=== PATIENT | female | born 1970 | race Caucasian/White ===

== ENCOUNTER 2021-03-20 04:48 | Inpatient (IN) | payer BC, OTHER ==
[~2021-03-20] VITALS: Ht 170 cm; Wt 104.7 kg
--- OUTSIDE RECORDS SUMMARY | 2021-03-20 04:53 | XMS REPORT | Clinical Summary ---
Author Author [facility] Organization [facility] Address Unknown Phone Unavailable Care Team Providers Care Director Music Name Role Phone Dami Miller MD PCP Source Comments Some departments are not documenting in the electronic medical record. If you d o not see the information that you expected, contact [facility] Information [facility] Information Management department at [phone] for further assistan ce in locating additional records.[facility] Allergies Comments Active Allergy Reactions Severity Noted Date Lisinopril COUGH High 03/10/2019 Medications End Date Status Medication Sig Dispensed Refills Start Date Active losartan-hydrochlorothiaz Take 1 tablet 0 gosia (HYZAAR) 100-25 mg by mouth tablet every morning. Active meloxicam (MOBIC) 15 mg Take 15 mg by 0 tablet mouth daily. Active metoprolol XL (TOPROL XL) Take 25 mg by 0 25 mg extended release mouth daily. tablet Active albuterol sulfate (PROAIR Inhale two 25.5 g 0 HFA) 90 mcg/actuation puffs by 0 aerosol inhaler mouth into the lungs every 6 hours as needed for Wheezing or Shortness of Breath. Shake well before use. Active Problems No known active problems Medical History Medical History Date Comments Hypertension Depression Family History Medical History Relation Name Comments Cancer Father Colon Cancer Mother Non Hodgkins Lympho ma Relation Name Status Comments Father Mother Social History Date Tobacco Use Types Packs/Day Years Used Never Smoker Smokeless Tobacco: Chew Current User Sex Assigned at Date Recorded Not on file Last Filed Vital Signs Not on file Plan of Treatment Health Maintenance Due Date Last Done Comments HIV SCREENING 01/19/1987 DTAP/TDAP VACCINES (1 - 01/19/1990 Tdap) HEPATITIS C SCREENING 01/19/1990 PHYSICAL (COMPREHENSIVE) 01/19/1990 EXAM CERVICAL CANCER SCREENING 01/19/1993 BREAST CANCER SCREENING 2012 INFLUENZA VACCINE 10/28/2020 Results Not on filefrom Last 3 Months Insurance Type Payer Benefit Subscriber ID Effective Phone Address Plan / Dates Group PPO BC[facility] [id number] 2014-P [phone] [id number] [facility] [place] [address] [facility] [address] (Home) [place], [place] [address] Advance Directives Patient Informatics Educator Explanation Type Date Recorded Advance Directive/DPOA Care Teams Start Date End Date Director Music Relationship Specialty 11/20/14 Dami Miller MD PCP - General [place] [address] [place] [id number]
--- NOTE | 2021-03-20 05:11 | ED Respiratory ---
General Chief Complaint: COVID19 Suspect/Confirmed Stated Complaint: SOB Source: patient Exam Limitations: no limitations (YAEL GRANDE MD) History of Present Illness Date Seen by Provider: Mar 20, 2021 Time Seen by Provider: 05:00 Initial Comments Patient is a 51-year-old female who presents to the emergency department with a chief complaint of worsening shortness of breath. Patient states that a couple of days before Thanksgi (on or about the ) she started feeling poorly. Sometime around 05 March she was diagnosed with Covid. She was admitted to a hospital in [place] ([facility]) where she stayed for about 2 weeks. Patient states that she was on high flow oxygen and slowly weaned down to normal oxygen per nasal cannula, discharged 7 days ago () on 4.5 L. She states over the last couple of days she has been having increasing oxygen requirements at home, worsening cough now productive of sputum. She denies any fevers or chills. No earache, runny nose or sore throat. She denies abdominal pain nausea, vomiting or diarrhea. No urinary complaints. No rashes, joint pain or swelling. She is not currently on any medications other than her antihypertensives. She is not diabetic. She does not smoke. 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 She is not Covid Vaccinated. EMS had her on a NRB. Room air sats at arrival were 73%. Patient was placed on 12 to 15 L per facemask and is satting 88 to 89%. All other review of systems reviewed and negative except as stated. Timing/Duration: getting worse Severity: severe Prior Episodes/Possible Cause: illness exposure Modifying Factors: Worse With Activity, Worse With Coughing Associated Symptoms: cough, shortness of breath (YAEL GRANDE MD) Allergies and Home Medications Allergies Uncoded Allergies: "pain meds" (Adverse Reaction, Unknown, 03/20/21) Patient Home Medication List Home Medication List Reviewed: Yes (YAEL GRANDE MD) ALPRAZolam (ALPRAZolam) 0.25 Mg Tablet, 0.25 MG PO TID PRN for ANXIETY, (Reported) Entered as Reported by: ZACH MOONEY on 03/20/21 1902 Last Action: Held Benzonatate (Benzonatate) 100 Mg Capsule, 100 MG PO TID PRN for COUGH, (Reported) Entered as Reported by: ZACH MOONEY on 03/20/211223 Last Action: Continued Citalopram Hydrobromide (Citalopram HBr) 20 Mg Tablet, 20 MG PO HS, (Reported) Entered as Reported by: ZACH MOONEY on 03/20/211223 Last Action: Continued Diphenhydramine HCl (Benadryl Allergy) 25 Mg Tablet, 25 MG PO HS PRN for SLEEP, (Reported) Entered as Reported by: ZACH MOONEY on 03/20/211223 Last Action: Held Ibuprofen (Advil Liqui-Gels) 200 Mg Capsule, 400-600 MG PO Q8H PRN for PAIN-MILD (1-4), (Reported) Entered as Reported by: ZACH MOONEY on 03/20/211223 Last Action: Held Losartan/Hydrochlorothiazide (Losartan-Hctz 100-25 mg Tab) 1 Each Tablet, 1 EA PO DAILY, (Reported) Entered as Reported by: ZACH MOONEY on 03/20/211223 Last Action: Converted Nabumetone (Nabumetone) 750 Mg Tablet, 750 MG PO BID PRN for MUSCLE SPASMS, (Reported) Entered as Reported by: ZACH MOONEY on 03/20/211223 Last Action: Converted Naproxen (Naproxen) 500 Mg Tablet, 500 MG PO BID PRN for PAIN-MILD (1-4), (Reported) Entered as Reported by: ZACH MOONEY on 03/20/211223 Last Action: Converted Tramadol HCl (Tramadol HCl ER) 100 Mg Tab.er.24h, 100 MG PO DAILY PRN for PAIN- MILD (1-4), (Reported) Entered as Reported by: ZACH MOONEY on 03/20/211223 Last Action: Converted Review of Systems Review of Systems Constitutional: see HPI EENTM: no symptoms reported Respiratory: cough, dyspnea on exertion, phlegm, short of breath Cardiovascular: no symptoms reported Gastrointestinal: no symptoms reported Genitourinary: no symptoms reported Skin: no symptoms reported Psychiatric/Neurological: No Symptoms Reported (YAEL GRANDE MD) All Other Systems Reviewed Negative Unless Noted: Yes (YAEL GRANDE MD) Physical Exam Vital Signs - First Documented 03/20/21 03/20/21 04:53 04:55 Temp 36.2 Pulse 120 Resp 32 B/P (MAP) 138/79 (98) Pulse Ox 90 O2 Delivery Nasal Cannula O2 Flow Rate 5.00 FiO2 90 (PEDRO SUMMERS MD) Capillary Refill : (YAEL GRANDE MD) Height: '" Weight: lbs. oz. kg; BMI Method: General Appearance: WD/WN, mild distress Eyes: Bilateral Eye Normal Inspection, Bilateral Eye PERRL, Bilateral Eye EOMI HEENT: PERRL/EOMI Neck: full range of motion, normal inspection Respiratory: chest non-tender, respiratory distress, decreased breath sounds (left), crackles, other (Diminished breath sounds on the left, crackles throughout; slightly labored breathing; sats 89% on simple face mask 12L) Cardiovascular: regular rate, rhythm, no murmur Gastrointestinal: normal bowel sounds, non tender, soft Extremities: normal range of motion, non-tender, normal inspection, no pedal edema, no calf tenderness, normal capillary refill Neurologic/Psychiatric: sash assembler II-XII nml as tested, no motor/sensory deficits, alert, normal mood/affect, oriented x 3 Skin: normal color, warm/dry (YAEL GRANDE MD) Focused Exam Lactate Level 03/20/21 05:05: Lactic Acid Level 2.09*H (PEDRO SUMMERS MD) Lactic Acid Level Laboratory Tests Test 03/20/21 05:05 Lactic Acid Level 2.09 MMOL/L (0.50-2.00) *H (PEDRO SUMMERS MD) Progress/Results/Core Measures Suspected Sepsis SIRS Temperature: Pulse: Respiratory Rate: Laboratory Tests 03/20/21 05:05: White Blood Count 26.5H Blood Pressure / Mean: Laboratory Tests 03/20/21 05:05: INR Comment 1.0, Platelet Count 532H 03/20/21 05:06: Creatinine 0.79, Total Bilirubin 1.2H (YAEL GRANDE MD) Results/Orders Lab Results Laboratory Tests Test 03/20/21 05:05 03/20/21 05:06 03/20/21 05:27 Range/Units White Blood Count 26.5 H 4.3-11.0 10^3/uL Red Blood Count 5.60 H 3.80-5.11 10^6/uL Hemoglobin 16.2 H 11.5-16.0 g/dL Hematocrit 49 35-52 % Mean Corpuscular Volume 87 80-99 fL Mean Corpuscular Hemoglobin 29 25-34 pg Mean Corpuscular Hemoglobin Concent 33 32-36 g/dL Red Cell Distribution Width 13.3 10.0-14.5 % Platelet Count 532 H 130-400 10^3/uL Mean Platelet Volume 8.8 L 9.0-12.2 fL Immature Granulocyte % (Auto) 1 % Neutrophils (%) (Auto) 84 H 42-75 % Lymphocytes (%) (Auto) 7 L 12-44 % Monocytes (%) (Auto) 7 0-12 % Eosinophils (%) (Auto) 1 0-10 % Basophils (%) (Auto) 0 0-10 % Neutrophils # (Auto) 22.3 H 1.8-7.8 10^3/uL Lymphocytes # (Auto) 2.0 1.0-4.0 10^3/uL Monocytes # (Auto) 1.8 H 0.0-1.0 10^3/uL Eosinophils # (Auto) 0.2 0.0-0.3 10^3/uL Basophils # (Auto) 0.1 0.0-0.1 10^3/uL Immature Granulocyte # (Auto) 0.2 H 0.0-0.1 10^3/uL Neutrophils % (Manual) 82 % Lymphocytes % (Manual) 11 % Monocytes % (Manual) 5 % Band Neutrophils 2 % Prothrombin Time 13.7 12.2-14.7 SEC INR Comment 1.0 0.8-1.4 Activated Partial Thromboplast Time 32 24-35 SEC D-Dimer 3.69 H 0.00-0.49 UG/ML Lactic Acid Level 2.09 *H 0.50-2.00 MMOL/L Influenza Type A (RT-PCR) Not Detected Not Detecte Influenza Type B (RT-PCR) Not Detected Not Detecte SARS-CoV-2 RNA (RT-PCR) Not Detected Not Detecte Sodium Level 136 135-145 MMOL/L Potassium Level 4.5 3.6-5.0 MMOL/L Chloride Level 100 98-107 MMOL/L Carbon Dioxide Level 22 21-32 MMOL/L Anion Gap 14 5-14 MMOL/L Blood Urea Nitrogen 9 7-18 MG/DL Creatinine 0.79 0.60-1.30 MG/DL Estimat Glomerular Filtration Rate 77 BUN/Creatinine Ratio 11 Glucose Level 129 H 70-105 MG/DL Calcium Level 8.9 8.5-10.1 MG/DL Corrected Calcium 8.9 8.5-10.1 MG/DL Total Bilirubin 1.2 H 0.1-1.0 MG/DL Aspartate Amino Transf (AST/SGOT) 20 5-34 U/L Alanine Aminotransferase (ALT/SGPT) 36 0-55 U/L Alkaline Phosphatase 88 40-136 U/L C-Reactive Protein High Sensitivity 1.79 H 0.00-0.50 MG/DL Total Protein 7.5 6.4-8.2 GM/DL Albumin 4.0 3.2-4.5 GM/DL Procalcitonin 0.04 <0.10 NG/ML Blood Gas Puncture Site LEFT RAD Blood Gas Patient Temperature 37 Arterial Blood pH 7.42 7.37-7.43 Arterial Blood Partial Pressure CO2 33 L 35-45 MMHG Arterial Blood Partial Pressure O2 67 L 79-93 MMHG Arterial Blood HCO3 21 L 23-27 MMOL/L Arterial Blood Total CO2 22.3 21.0-31.0 MMOL/L Arterial Blood Oxygen Saturation 93 L 94-100 % Arterial Blood Base Excess -2.5 -2.5-2.5 MMOL/L Paul Test YES-POS Blood Gas Ventilator Setting YES Blood Gas Inspired Oxygen 75% (PEDRO SUMMERS MD) My Orders Orders - PEDRO SUMMERS MD Ct Angio Chest W (03/20/21 06:15) Chest 1 View, Ap/Pa Only (03/20/21 06:30) Iohexol Injection (Omnipaque 350 Mg/Ml 1 (03/20/21 07:00) Received Contrast (Hold Metformin- Contr (03/20/21 07:00) Sodium Chloride Flush (Catheter Flush Sy (03/20/21 07:00) Ns (Ivpb) (Sodium Chloride 0.9% Ivpb Bag (03/20/21 07:00) Ed Admission (Communication) (03/20/21 07:21) (PEDRO SUMMERS MD) Medications Given in ED Current Medications Medications Dose Ordered Sig/Corie Route Start Time Stop Time Status Last Admin Dose Admin Alprazolam 0.25 mg ONCE ONCE PO 03/20/21 06:15 03/20/21 06:16 DC 03/20/21 06:11 0.25 MG Iohexol 100 ml ONCE ONCE IV 03/20/21 07:00 03/20/21 07:01 DC 03/20/21 07:34 85 ML Lidocaine HCl 20 ml ONCE ONCE INJ 03/20/21 06:00 03/20/21 06:01 DC 03/20/21 06:17 20 ML Sodium Chloride 10 ml NEEDED PRN IV 03/20/21 07:00 03/20/21 07:34 10 ML Sodium Chloride 100 ml ONCE ONCE IV 03/20/21 07:00 03/20/21 07:01 DC 03/20/21 07:34 80 ML (PEDRO SUMMERS MD) Vital Signs/I&O 03/20/21 03/20/21 03/20/21 04:53 04:53 04:55 Temp 36.2 Pulse 120 Resp 32 B/P (MAP) 138/79 (98) Pulse Ox 90 90 O2 Delivery Nasal Cannula Simple Mask Simple Mask O2 Flow Rate 5.00 15.00 15.00 FiO2 90 (PEDRO SUMMERS MD) Vital Signs/I&O Capillary Refill : (YAEL GRANDE MD) Progress Note #1: Time: 05:35 Progress Note Patient on 35L and 75% satting 93% Progress Note #2: Time: 06:[address] Fisher came in, placed thoravent without complication. Patient states she is breathing easier. Will get repeat CXR at this time. (YAEL GRANDE MD) Progress Note #1: Time: 07:27 Progress Note I have assumed care of this patient from Dr. Grande. Dr. Fisher has been to the ER and placed a Thora vent. Repeat chest x-ray demonstrates reduction in the size of the pneumothorax but it is still present. We did attempt to place the patient on nasal cannula but she did not tolerate it. She remains on Vapotherm at this time. Oxygen saturation dropped to the high 80s on nasal cannula. CT angiogram has been obtained and report is pending. It appears unlikely that the patient has active Covid infection at this time given no leukopenia, low CRP, and a negative Covid PCR swab. However, since she has remained symptomatic since the onset of her illness, she will remain in Covid precautions at this time. I discussed the case with Dr. Calderon and the eICU and patient is now ready for admission. We have visited with the patient's , Shari, who is her default DPOA for medical decisions according to the patient. Progress Note #2: Time: 08:[address] angiogram did not reveal any pulmonary emboli. However, the catheter for the Thoravent has slipped out of the pleural space and is now in the tissue superficial to the pleural lining. It is no longer effective. I discussed the situation with Dr. Fisher. Since the pneumothorax is now quite small, we have decided to pull the Thoravent and leave it out. An x-ray will be obtained in 3 hours to determine if an alternative form of venting of the pneumothorax is necessary. Patient was updated with this information. The Thoravent was removed and an OpSite placed over it. (PEDRO SUMMERS MD) Diagnostic Imaging Diagonstic Imaging: Xray Plain Films/CT/US/NM/MRI: chest Comments CXR interpreted by me - completely "kimberlyn out" right lung, pneumothorax on the left (YAEL GRANDE MD) Diagonstic Imaging: Xray Plain Films/CT/US/NM/MRI: chest Comments Repeat chest x-ray viewed by me and report reviewed. See report below: NAME: EMILI [facility]USTIN [facility] REC#: [id number] PT STATUS: REG ER : 1970 PHYSICIAN: PEDRO SUMMERS MD ADMIT DATE: 03/20/21/ER Signed Date of Exam:03/20/21 CHEST 1 VIEW, AP/PA ONLY EXAMINATION: Chest 1 view HISTORY: Pneumothorax COMPARISON: 03/20/2021 FINDINGS: Heart size and pulmonary vasculature are normal. There has been interval placement of left-sided chest tube. There is a persistent but decreased left pneumothorax with 2.2 cm of pleural separation. Stable patchy interstitial airspace opacities throughout the right lung and left lower lung. No pleural effusion. The osseous structures are intact. IMPRESSION: 1. Decreased size of the persistent left pneumothorax status post chest tube placement. 2. Stable patchy interstitial and airspace opacities. Dictated by: Dictated on workstation # [id number] Dict: 03/20/2148 Trans: 03/20/21 0711 [facility] [id number] Interpreted by: TOVA WHITTEN DO Electronically signed by: TOVA WHITTEN DO 03/20/21 0711 Diagonstic Imaging: CT Plain Films/CT/US/NM/MRI: chest Comments CT chest viewed by me and report reviewed. Discussed with the radiologist. See report below: NAME: EMILI AUSTIN [facility] REC#: [id number] PT STATUS: ADM IN : 1970 PHYSICIAN: PEDRO SUMMERS MD ADMIT DATE: 03/20/21/ICU Signed Date of Exam:03/20/21 CT ANGIO CHEST W EXAMINATION: CT angiography of the chest. TECHNIQUE: Contrast enhanced thin section helical images were obtained through the chest with intravenous contrast timed for the optimal opacification of the arterial structures per CTA protocol. Post-processing, reconstructions and interpretation of angiographic images of the vessels was performed. 3D MIP reconstructions were performed and reviewed. All CT scans use one or more of the following dose optimizing techniques: automated exposure control, MA and/or KvP adjustment based on a patient size and exam type, or iterative reconstruction. HISTORY: History of COVID with decreased lung sounds COMPARISON: None available. FINDINGS: Vascular: No filling defects within the pulmonary arteries. Thoracic aorta is normal in caliber. Thyroid: The thyroid is normal. Mediastinum: Heart size is normal with a small pericardial effusion. No suspicious lymphadenopathy. Lungs and airways: There is a left-sided pneumothorax. There are patchy groundglass opacities and consolidation throughout both lungs . No pleural effusion. A left-sided chest tube is present with the tip projects over the chest wall does not appear to be within the pleural cavity. The airways are normal. Upper abdomen: The subphrenic structures are normal. Musculoskeletal: No suspicious osseous lesion or compression fracture. IMPRESSION: 1. No findings of pulmonary embolus. 2. Left-sided pneumothorax. The chest tube tip resides within the left chest wall not within the pleural space. 3. Patchy groundglass consolidation throughout both lungs compatible with history of COVID 19 and pneumonia. These findings were communicated by Dr. Andrew Whitten at 7:42 AM on 03/20/2021. Report was faxed to [facility] Infection Control by annelise at 7:52AM. Dictated by: Dictated on workstation # [id number] Dict: 03/20/21 0737 Trans: 03/20/21 0754 [facility] [id number] Interpreted by: TOVA WHITTEN DO Electronically signed by: TOVA WHITTEN DO 03/20/21 0754 (PEDRO SUMMERS MD) Critical Care Note Critical Care Start Time: 05:00 Stop Time: 06:00 Total Time (minutes) 30 minutes of critical care time in the evaluation and management of this patient with post Covid pneumonia and hypoxia. Time includes initial ev aluation, oxygen supplementation, fluid resuscitation, review and interpretation of laboratory studies, chest x-ray. discussion with radiologist and surgeon for ptx treatment (YAEL GRANDE MD) Departure Communication (Admissions) Time/Spoke to Consulting Phy: 05:[address] Fisher, will be in to place thoravent (YAEL GRANDE MD) Time/Spoke to Admitting Phy: 07:20 Dr. Robins (PEDRO SUMMERS MD) Impression Primary Impression: Pneumonia due to COVID-19 virus Additional Impressions: Hypoxia Pneumothorax on left Disposition: 09 ADMITTED INPATIENT Condition: Critical Admissions Decision to Admit Reason: Admit from ER (General) Decision to Admit/Date: Mar 20, 2021 Time/Decision to Admit Time: 05:33 (YAEL GRANDE MD) Decision to Admit Reason: Admit from ER (General) Decision to Admit/Date: Mar 20, 2021 Time/Decision to Admit Time: 05:33 (PEDRO SUMMERS MD) Departure-Patient Inst. Referrals: FATOUMATA VINSON MD (PCP/Family) Primary Care Physician YAEL GRANDE MD Mar 20, 2021 05:11 PEDRO SUMMERS MD Mar 20, 2021 07:33
[2021-03-20] MEDS ORDERED: NS IV 1000 ML 1,000 ML IV SCH (05:15)
[2021-03-20 05:20] LABS: BASOPHILS # (AUTO) 0.1 10^3/uL (0.0-0.1); BASOPHILS % (AUTO) 0 % (0-10); EOSINOPHILS # (AUTO) 0.2 10^3/uL (0.0-0.3); EOSINOPHILS % (AUTO) 1 % (0-10); HEMATOCRIT 49 % (35-52); HEMOGLOBIN 16.2 g/dL (11.5-16.0); LYMPHOCYTES % (AUTO) 7 % (12-44); MEAN CORPUSCULAR HEMOGLOBIN 29 pg (25-34); MEAN CORPUSCULAR HGB CONC 33 g/dL (32-36); MEAN CORPUSCULAR VOLUME 87 fL (80-99); MEAN PLATELET VOLUME 8.8 fL (9.0-12.2); MONOCYTES # (AUTO) 1.8 10^3/uL (0.0-1.0); MONOCYTES % (AUTO) 7 % (0-12); NEUTROPHILS # (AUTO) 22.3 10^3/uL (1.8-7.8); NEUTROPHILS % (AUTO) 84 % (42-75); PLATELET COUNT 532 10^3/uL (130-400); WHITE BLOOD COUNT 26.5 10^3/uL (4.3-11.0)
[2021-03-20 05:34] LABS: POTASSIUM 4.5 MMOL/L (3.6-5.0)
[2021-03-20 05:35] LABS: CALCIUM 8.9 MG/DL (8.5-10.1)
[2021-03-20 05:36] LABS: TOTAL PROTEIN 7.5 GM/DL (6.4-8.2)
[2021-03-20 05:38] LABS: BILIRUBIN,TOTAL 1.2 MG/DL (0.1-1.0)
[2021-03-20 05:40] LABS: CREATININE SERUM 0.79 MG/DL (0.60-1.30)
[2021-03-20 05:43] LABS: ABG BASE EXCESS -2.5 MMOL/L (-2.5-2.5); ABG OXYGEN SATURATION 93 % (94-100); ABG PCO2 33 MMHG (35-45); ABG PH 7.42 (7.37-7.43); ABG PO2 67 MMHG (79-93); ABG TCO2 22.3 MMOL/L (21.0-31.0)
[2021-03-20 05:44] LABS: ALLENS TEST YES-POS; INSPIRED O2 75%; PATIENT TEMP 37; VENTILATOR YES
--- NOTE | 2021-03-20 05:49 | Diagnostic Imaging Report ---
EXAMINATION: Chest 1 view HISTORY: Short of breath, COVID COMPARISON: None available. FINDINGS: Heart size and pulmonary vasculature are normal. There are diffuse patchy interstitial and airspace opacities seen throughout the right lung. Mild opacities are seen within the perihilar left lung and left lung base. There is a large left pneumothorax with 5.2 cm of pleural separation. No significant pleural effusion. The osseous structures are intact. IMPRESSION: 1. Large left pneumothorax with 5.2 cm of pleural separation. 2. Patchy interstitial airspace opacities throughout the right lung and within the left lower lung compatible with history of Covid-19 pneumonia. CRITICAL FINDING. Report communicated to Dr. Chapa by Dr. Andrew Wylie at 5:39 AM on 03/18/2021. Dictated by: Dictated on workstation # [id number]
[2021-03-20] MEDS ORDERED: LIDOCAINE 1% INJ 20 ML 20 ML VIAL INJ ONE (06:00)
[2021-03-20 06:09] LABS: FIBRIN DEGRADATION PRODUCTS 3.69 UG/ML (0.00-0.49); PROTHROMBIN TIME PATIENT 13.7 SEC (12.2-14.7)
[2021-03-20] MEDS ORDERED: ALPRAZolam 0.25 MG (XANAX) TAB PO ONE (06:15)
--- NOTE | 2021-03-20 06:59 | Diagnostic Imaging Report ---
EXAMINATION: Chest 1 view HISTORY: Pneumothorax COMPARISON: 03/20/2021 FINDINGS: Heart size and pulmonary vasculature are normal. There has been interval placement of left-sided chest tube. There is a persistent but decreased left pneumothorax with 2.2 cm of pleural separation. Stable patchy interstitial airspace opacities throughout the right lung and left lower lung. No pleural effusion. The osseous structures are intact. IMPRESSION: 1. Decreased size of the persistent left pneumothorax status post chest tube placement. 2. Stable patchy interstitial and airspace opacities. Dictated by: Dictated on workstation # [id number]
[2021-03-20] MEDS ORDERED: HOLD METFORMIN - RECEIVED CONTRAST 20 ML VIAL IV SCH (07:00)
[2021-03-20] MEDS ORDERED: CATHETER FLUSH 10 ML SYR IV PRN (07:00)
[2021-03-20] MEDS ORDERED: IOHEXOL 350 MG/ML 100 ML (OMNIPAQUE 350) VIAL IV ONE (07:00)
[2021-03-20] MEDS ORDERED: NS 100 ML (IVPB) BAG IV ONE (07:00)
[2021-03-20 07:07] LABS: BAND NEUTROPHILS 2 %; LYMPHOCYTES % (MANUAL) 11 %; MONOCYTES % (MANUAL) 5 %; NEUTROPHILS % (MANUAL) 82 %
--- NOTE | 2021-03-20 07:23 | History & Physical-Hospitalist ---
History of Present Illness HPI/Chief Complaint CC: SOB HPI: This is a 51-year-old [facility] female patient who presents with SOB the past three days, worsened since she had Covid. She was found to have a pneumothorax on the left side of 50%, a Pleuradex catheter was placed by Dr. Fisher and she will no longer need isolation but will need ICU due to requirement of max v apotherm at 40 liters and 100% and WBC of 26,000, in need of close monitoring due to high risk for decompensation. Source: patient, family, RN/MD, old records Exam Limitations: clinical condition (Maxed on Vapotherm) Date Seen 03/20/21 Time Seen by a Provider: 11:30 Attending Physician PCP Dami Miller MD Referring Physician Date of Admission Home Medications & Allergies Home Medications Reviewed patient Home Medication Reconciliation performed by pharmacy medication reconciliations solder technician and/or nursing. Patients Allergies have been reviewed. Allergies Allergies Uncoded Allergies "pain meds" ( Adverse Reaction, Unknown, 03/20/21) Past Prsqjfd-Rkvnzc-Xeobvt Hx Patient Social History Marrital Status: single Employed/Student: employed Tobacco Use?: No Smoking Status: Never a Smoker Use of E-Cig and/or Vaping dev: No Substance use?: No Alcohol Use?: No Pt feels they are or have been: No Immunizations Up To Date First/Initial COVID19 Vaccinat: N/A Current Status status: No Advance Directives: No Communicates: Verbally Primary Language: Kyrgyz Preferred Spoken Language: Kyrgyz Is interpretation needed?: No Past Medical History Hypertension Arthritis Anxiety, Depression Review of Systems Constitutional: see HPI, malaise, weakness EENTM: no symptoms reported Respiratory: dyspnea on exertion Cardiovascular: no symptoms reported Gastrointestinal: no symptoms reported Genitourinary: no symptoms reported Musculoskeletal: no symptoms reported Skin: no symptoms reported Psychiatric/Neurological: No Symptoms Reported All Other Systems Reviewed Negative Unless Noted: Yes Physical Exam Physical Exam Vital Signs Vital Signs - First Documented 03/20/21 03/20/21 04:53 04:55 Temp 36.2 Pulse 120 Resp 32 B/P (MAP) 138/79 (98) Pulse Ox 90 O2 Delivery Nasal Cannula O2 Flow Rate 5.00 FiO2 90 Capillary Refill : Height, Weight, BMI Height: '" Weight: lbs. oz. kg; 25.00 BMI Method: General Appearance: Anxious, Chronically ill, Moderate Distress Eyes: Right Eye Normal Inspection, Right Eye PERRL HEENT: PERRL/EOMI, Normal ENT Inspection, Pharynx Normal, Moist Mucous Membr anes Neck: Full Range of Motion, Normal Inspection, Non Tender Respiratory: Chest Non Tender, Lungs Clear, Normal Breath Sounds, No Respiratory Distress, Accessory Muscle Use, Decreased Breath Sounds Cardiovascular: Regular Rate, Rhythm, No Edema, No Gallop, No JVD, No Murmur, Normal Peripheral Pulses Gastrointestinal: Normal Bowel Sounds, No Organomegaly, No Pulsatile Mass, Non Tender, Soft Back: Normal Inspection, No CVA Tenderness, No Vertebral Tenderness Extremity: Normal Capillary Refill, Normal Inspection, Normal Range of Motion, Non Tender, No Calf Tenderness, No Pedal Edema Neurologic/Psychiatric: Alert, Oriented x3, No Motor/Sensory Deficits, Normal Mood/Affect Skin: Normal Color, Warm/Dry Lymphatic: No Adenopathy Results Results/Procedures Labs Laboratory Tests 03/20/21 05:05 03/20/21 05:06 03/21/21 05:10 Patient resulted labs reviewed. Assessment/Plan Admission Diagnosis Assessment: Acute hypoxic respiratory failure Left-sided pneumothorax Post Covid syndrome anxiety Depression Hypertension Leukocytosis Plan: Vapotherm Pneumothorax management per Dr. Fisher [facility] Admission Status: Inpatient Order (span 2 midnights) Reason for Inpatient Admission: Respiratory failure Diagnosis/Problems Diagnosis/Problems (1) Pneumonia due to COVID-19 virus Status: Acute (2) Pneumothorax on left Status: Acute (3) Hypoxia Status: Acute JAMES CRAIG DO Mar 20, 2021 07:23
--- NOTE | 2021-03-20 07:53 | Diagnostic Imaging Report ---
EXAMINATION: CT angiography of the chest. TECHNIQUE: Contrast enhanced thin section helical images were obtained through the chest with intravenous contrast timed for the optimal opacification of the arterial structures per CTA protocol. Post-processing, reconstructions and interpretation of angiographic images of the vessels was performed. 3D MIP reconstructions were performed and reviewed. All CT scans use one or more of the following dose optimizing techniques: automated exposure control, MA and/or KvP adjustment based on a patient size and exam type, or iterative reconstruction. HISTORY: History of COVID with decreased lung sounds COMPARISON: None available. FINDINGS: Vascular: No filling defects within the pulmonary arteries. Thoracic aorta is normal in caliber. Thyroid: The thyroid is normal. Mediastinum: Heart size is normal with a small pericardial effusion. No suspicious lymphadenopathy. Lungs and airways: There is a left-sided pneumothorax. There are patchy groundglass opacities and consolidation throughout both lungs . No pleural effusion. A left-sided chest tube is present with the tip projects over the chest wall does not appear to be within the pleural cavity. The airways are normal. Upper abdomen: The subphrenic structures are normal. Musculoskeletal: No suspicious osseous lesion or compression fracture. IMPRESSION: 1. No findings of pulmonary embolus. 2. Left-sided pneumothorax. The chest tube tip resides within the left chest wall not within the pleural space. 3. Patchy groundglass consolidation throughout both lungs compatible with history of COVID 19 and pneumonia. These findings were communicated by Dr. Andrew Wylie at 7:42 AM on 03/20/2021. Report was faxed to [facility] by charly at 7:52AM. Dictated by: Dictated on workstation # [id number]
[2021-03-20] MEDS ORDERED: guaiFENesin/CODEINE (ROBITUSSIN AC) 10ML UDC PO PRN (09:00)
[2021-03-20] MEDS ORDERED: LOPERAMIDE 2 MG (IMODIUM) TABLET PO PRN (09:00)
[2021-03-20] MEDS ORDERED: CEFEPIME INJECTION 1,000 MG in NS (IVPB) 50 ML IV SCH (09:00)
[2021-03-20] MEDS ORDERED: ACETAMINOPHEN 325 MG TABLET PO PRN (09:00)
[2021-03-20] MEDS ORDERED: CALCIUM CARBONATE 500 MG (TUMS) TAB.CHEW PO PRN (09:00)
[2021-03-20] MEDS ORDERED: DOCUSATE SODIUM 100 MG (COLACE) CAP PO PRN (09:00)
[2021-03-20] MEDS ORDERED: MELATONIN 3 MG TABLET PO PRN (09:00)
[2021-03-20] MEDS ORDERED: ONDANSETRON 4 MG/2 ML (SDV) Z0FRAN IV PRN (09:00)
[2021-03-20] MEDS ORDERED: KETOROLAC 30 MG/ML VIAL IVP PRN (09:00)
[2021-03-20 09:44] VITALS: BP 121/68
[2021-03-20] MEDS ORDERED: RT-ALBUTEROL HFA 8.5 GM INHALER IH PRN (10:15)
[2021-03-20] MEDS: guaiFENesin (MUCINEX) 600 MG TAB PO SCH ×2 (10:23→20:00)
[2021-03-20] MEDS: SENNA W/DOCUSATE (SENOKOT S) TABLET PO SCH ×2 (10:29→20:01)
[2021-03-20] MEDS: NS IV 1000 ML 1,000 ML IV SCH (10:29)
[2021-03-20] MEDS: ENOXAPARIN 40 MG/0.4 ML (LOVENOX) SYR SC SCH (10:29)
[2021-03-20] MEDS: polyethylene glycoL POWDER 17 GM (MIRALAX) PACK PO SCH ×2 (10:30→20:01)
--- NOTE | 2021-03-20 11:24 | Tele-ICU Consult ---
History of Present Illness History of Present Illness Date Seen by Provider: Mar 20, 2021 Time Seen by Provider: 11:22 Date of Admission 03/20/21 History of Present Illness she has hx of covid-19 infection since 01/2021. she has been at home after initial treatment on home o2 @4l n/c. now presented with sob and cxr in er showed left ptx for which thoradarain placed. she felt better but she needed vapotherm for oxygenation CTA in er showed no PE but chest tube seems to displaced hence its removed. now on vapotherm. states feeling better. repeat cxr result pending. inflammatory markers elevated. started on antibiotcs. right lung looks much worse with diffuse infiltrate video visit made and discussed with patient. discussed earlier with ER MD Allergies and Home Medications Allergies Uncoded Allergies: "pain meds" (Adverse Reaction, Unknown, 03/20/21) Past Medical/Social/Family Hx Patient Social History Tobacco Use?: No Smoking Status: Never a Smoker Smokeless Tobacco Frequency: Never a User Use of E-Cig and/or Vaping dev: No Substance use?: No Alcohol Use?: No Pt stated abuse/neglect: No Immunizations Up To Date Influenza Vaccine Up-to-Date: No; Not Current First/Initial COVID19 Vaccinat: N/A Current Status status: No Advance Directives: No Communicates: Verbally Primary Language: Nigerian Preferred Spoken Language: Nigerian Is interpretation needed?: No Review of Systems Constitutional: see HPI Other ROS PER ATTENDING PHYSICIAN Focused Exam Lactate Level 03/20/21 05:05: Lactic Acid Level 2.09*H 03/20/21 07:50: Lactic Acid Level 2.05*H 03/20/21 10:25: Lactic Acid Level 2.09*H Height, Weight, BMI Height: '" Weight: lbs. oz. kg; 34.77 BMI Method: Lactic Acid Level Laboratory Tests Test 03/20/21 07:50 03/20/21 10:25 Lactic Acid Level 2.05 MMOL/L (0.50-2.00) *H 2.09 MMOL/L (0.50-2.00) *H Exam Exam Patient acknowledged, consented, and participated in this virtual visit which was conducted using real time audio/video Vital Signs Date Time Temp Pulse Resp B/P (MAP) Pulse Ox O2 Delivery O2 Flow Rate FiO2 03/20/21 10:37 Vapotherm 35.00 85.00 03/20/21 10:22 Vapotherm 35.00 75.00 03/20/21 09:44 35.9 110 92 85 03/20/21 08:52 91 Vapotherm 40.00 85 03/20/21 08:47 35.9 Vapotherm 40.00 85.00 03/20/21 08:42 107 03/20/21 08:41 90 Vapotherm 35.00 80 03/20/21 08:02 110 121/68 94 03/20/21 07:46 104 22 110/62 93 03/20/21 07:34 110 24 135/80 90 03/20/21 04:55 90 Simple Mask 15.00 90 03/20/21 04:53 36.2 120 32 138/79 (98) 90 Simple Mask 15.00 03/20/21 04:53 Nasal Cannula 5.00 I & O 03/20/21 07:00 Intake Total 1000 ml Balance 1000 ml Height & Weight Height: '" Weight: lbs. oz. kg; 34.77 BMI Method: General Appearance: Mild Distress Gastrointestinal: normal bowel sounds, non tender, soft Other comments RI PER ATTENDING PHYSICIAN Results Lab Laboratory Tests 03/20/21 05:05 03/20/21 05:06 Meds REVIEWED Assessment/Plan Assessment/Plan 1. PNEUMOTHORAX LEFT DUE TO COVID-19 PNEUMONIA. S/P THORADRAIN. 2. COVID -19 PNEUMONIA 3. ACUTE AND CHR. HYPOXIC RESPIRATORY FAILURE.. 4. HIGH RISK FOR DVT AND PE. 5.MODERATE OBESITY. 6. SUSPECT SUPER ADDED BACTERIAL PNEUMONIA. RECOMMENDATIONS. 1. CHEST TUBE INSERTION AND MANAGEMENT PER GEN. SURGERY. 2. OXYGENATE WITH VAPOTHERM. 3. IV ANTIBIOTICS PER PCP. 4. DVT PROPHYLAXIS WITH LOVENOX. 5. IV DEXAMETHASONE AND MONITOR GLUCOSE LEVELS. 6. ULCER PROPHYLAXIS WITH PO PEPCID. Critical Care: Critically Ill Patient Time spent with patient (mins): 45 SHARON THACKER MD Mar 20, 2021 11:24
[2021-03-20] MEDS ORDERED: DIPH25TA65 PO (12:24)
[2021-03-20] MEDS ORDERED: IBUP200C92 PO (12:24)
[2021-03-20] MEDS ORDERED: NAPR-915 PO (12:24)
[2021-03-20] MEDS ORDERED: TRAM100T34 PO (12:24)
[2021-03-20] MEDS ORDERED: NABU-95 PO (12:24)
[2021-03-20] MEDS ORDERED: ALPR0.254 PO (12:24)
[2021-03-20] MEDS ORDERED: LOSA1TAB23 PO (12:24)
[2021-03-20] MEDS ORDERED: CITA20TA9 PO (12:24)
[2021-03-20] MEDS ORDERED: BENZ-36 PO (12:24)
[2021-03-20] MEDS: CEFEPIME INJECTION 1,000 MG in NS (IVPB) 50 ML IV SCH ×2 (12:26→18:09)
[2021-03-20] MEDS ORDERED: FLU QUADRIvalent (3YOA+) 60 mcg/0.5 ml 2021-22(AFLURIA) IM ONE (12:45)
--- NOTE | 2021-03-20 13:23 | Diagnostic Imaging Report ---
INDICATION: Pneumothorax, follow-up. TIME OF EXAM: 11:01 a.m. COMPARISON: Correlation is made with prior chest earlier same day. FINDINGS: Thora-Vent chest tube on the left was removed. There is a small left apical pneumothorax. The size of pneumothorax has decreased since earlier this morning. Extensive bilateral pulmonary infiltrates are noted. There is no effusion. IMPRESSION: Left Thora-Vent chest tube removal. There is a small left apical pneumothorax which has decreased since earlier today. Dictated by: Dictated on workstation # [id number]
--- NOTE | 2021-03-20 14:50 | Diagnostic Imaging Report ---
INDICATION: Pneumonia followup. FINDINGS: The upright portable chest shows normal heart size and vascularity. There are bilateral infiltrates, similar to the 03/20/2021 study. There is no effusion or pneumothorax. IMPRESSION: There are persistent left lung infiltrates. Dictated by: Dictated on workstation # [id number]
[2021-03-20] MEDS: RT-ALBUTEROL HFA 8.5 GM INHALER IH SCH ×3 (15:02→21:54)
[2021-03-20 15:03] LABS: BILIRUBIN,URINE NEGATIVE (NEGATIVE); CLARITY,URINE CLEAR; COLOR,URINE YELLOW; GLUCOSE, URINE (UA) NEGATIVE (NEGATIVE); KETONES,URINE NEGATIVE (NEGATIVE); LEUKOCYTE ESTERASE ,URINE NEGATIVE (NEGATIVE); NITRITE,URINE NEGATIVE (NEGATIVE); PROTEIN,URINE NEGATIVE (NEGATIVE)
[2021-03-20 15:21] LABS: BACTERIA,URINE TRACE /HPF; SQUAMOUS EPITHELIAL CELL,UR 0-2 /HPF; WBC,URINE RARE /HPF
--- NOTE | 2021-03-20 15:42 | Consultation - Surgery ---
History of Present Illness History of Present Illness Patient Consulted On(lisa/time) 03/20/21 15:37 Date Seen by Provider: Mar 20, 2021 Time Seen by Provider: 06:15 History of Present Illness Consult requested by Dr. Chapa for pneumothorax left side. Patient seen and evaluated emergency department. Patient is a 51-year-old female who in late January had Covid. She has been home. She had increasing shortness of breath and drop in oxygen saturation. Was brought to emergency department for further evaluation by EMS. Patient having difficulty breathing. Slightly labored. Moving made worse. Nothing making better. Patient uncomfortable. Patient had chest x-ray which demonstrated a left pneumothorax. Allergies and Home Medications Allergies Uncoded Allergies: "pain meds" (Adverse Reaction, Unknown, 03/20/21) Patient Home Medication List Home Medication List Reviewed: Yes ALPRAZolam (ALPRAZolam) 0.25 Mg Tablet, 0.25 MG PO TID PRN for ANXIETY, (Reported) Entered as Reported by: ZACH MOONEY on 03/20/211223 Last Action: Reviewed Benzonatate (Benzonatate) 100 Mg Capsule, 100 MG PO TID PRN for COUGH, (Reported) Entered as Reported by: ZACH MOONEY on 03/20/211223 Last Action: Reviewed Citalopram Hydrobromide (Citalopram HBr) 20 Mg Tablet, 20 MG PO HS, (Reported) Entered as Reported by: ZACH MOONEY on 03/20/211223 Last Action: Reviewed Diphenhydramine HCl (Benadryl Allergy) 25 Mg Tablet, 25 MG PO HS PRN for SLEEP, (Reported) Entered as Reported by: ZACH MOONEY on 03/20/211223 Last Action: Reviewed Ibuprofen (Advil Liqui-Gels) 200 Mg Capsule, 400-600 MG PO Q8H PRN for PAIN-MILD (1-4), (Reported) Entered as Reported by: ZACH MOONEY on 03/20/211223 Last Action: Reviewed Losartan/Hydrochlorothiazide (Losartan-Hctz 100-25 mg Tab) 1 Each Tablet, 1 EA PO DAILY, (Reported) Entered as Reported by: ZACH MOONEY on 03/20/211223 Last Action: Reviewed Nabumetone (Nabumetone) 750 Mg Tablet, 750 MG PO BID PRN for MUSCLE SPASMS, (Reported) Entered as Reported by: ZACH MOONEY on 03/20/211223 Last Action: Reviewed Naproxen (Naproxen) 500 Mg Tablet, 500 MG PO BID PRN for PAIN-MILD (1-4), (Reported) Entered as Reported by: ZACH MOONEY on 03/20/211223 Last Action: Reviewed Tramadol HCl (Tramadol HCl ER) 100 Mg Tab.er.24h, 100 MG PO DAILY PRN for PAIN-M ILD (1-4), (Reported) Entered as Reported by: ZACH MOONEY on 03/20/211223 Last Action: Reviewed Past Rzgzxuc-Jtzsph-Ndcaaw Hx Patient Social History Smoking Status: Never a Smoker Alcohol Use?: No Have you traveled recently?: No Cardiovascular Cardiac Disorders: Hypertension Family Medical History Significant Family History: No Pertinent Family Hx Review of Systems-General ROS-Unable to Obtain: Patient provided current time due to difficulty breathing Physical Exam-General Problems Physical Exam Vital Signs Vital Signs - First Documented 03/20/21 03/20/21 04:53 04:55 Temp 36.2 Pulse 120 Resp 32 B/P (MAP) 138/79 (98) Pulse Ox 90 O2 Delivery Nasal Cannula O2 Flow Rate 5.00 FiO2 90 Capillary Refill : General Appearance: WD/WN, mild distress, obese HEENT: PERRL/EOMI, normal ENT inspection Neck: non-tender, supple Respiratory: chest non-tender, respiratory distress (Slight) Cardiovascular: regular rate, rhythm, no JVD Gastrointestinal: non tender, soft Rectal: deferred Back: no CVA tenderness, no vertebral tenderness Extremities: non-tender, normal inspection, no pedal edema, no calf tenderness 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, alert, normal mood/affect, oriented x 3 Skin: normal color, warm/dry Lymphatic: no adenopathy Data Review Labs Laboratory Tests 03/20/21 05:05: White Blood Count 26.5H, Red Blood Count 5.60H, Hemoglobin 16.2H, Hematocrit 49, Mean Corpuscular Volume 87, Mean Corpuscular Hemoglobin 29, Mean Corpuscular Hemoglobin Concent 33, Red Cell Distribution Width 13.3, Platelet Count 532H, Mean Platelet Volume 8.8L, Immature Granulocyte % (Auto) 1, Neutrophils (%) (Auto) 84H, Lymphocytes (%) (Auto) 7L, Monocytes (%) (Auto) 7, Eosinophils (%) (Auto) 1, Basophils (%) (Auto) 0, Neutrophils # (Auto) 22.3H, Lymphocytes # (Auto) 2.0, Monocytes # (Auto) 1.8H, Eosinophils # (Auto) 0.2, Basophils # (Auto) 0.1, Immature Granulocyte # (Auto) 0.2H, Neutrophils % (Manual) 82, Lymphocytes % (Manual) 11, Monocytes % (Manual) 5, Band Neutrophils 2, Prothr ombin Time 13.7, INR Comment 1.0, Activated Partial Thromboplast Time 32, D- Dimer 3.69H, Lactic Acid Level 2.09*H, Influenza Type A (RT-PCR) Not Detected, Influenza Type B (RT-PCR) Not Detected, SARS-CoV-2 RNA (RT-PCR) Not Detected 03/20/21 05:06: Sodium Level 136, Potassium Level 4.5, Chloride Level 100, Carbon Dioxide Level 22, Anion Gap 14, Blood Urea Nitrogen 9, Creatinine 0.79, Estimat Glomerular Filtration Rate 77, BUN/Creatinine Ratio 11, Glucose Level 129H, Calcium Level 8.9, Corrected Calcium 8.9, Total Bilirubin 1.2H, Aspartate Amino Transf (AST/SGOT) 20, Alanine Aminotransferase (ALT/SGPT) 36, Alkaline Phosphatase 88, C-Reactive Protein High Sensitivity 1.79H, Total Protein 7.5, Albumin 4.0, Procalcitonin 0.04 03/20/21 05:27: Blood Gas Puncture Site LEFT RAD, Blood Gas Patient Temperature 37, Arterial Blood pH 7.42, Arterial Blood Partial Pressure CO2 33L, Arterial Blood Partial Pressure O2 67L, Arterial Blood HCO3 21L, Arterial Blood Total CO2 22.3, Arterial Blood Oxygen Saturation 93L, Arterial Blood Base Excess -2.5, Paul Test YES-POS, Blood Gas Ventilator Setting YES, Blood Gas Inspired Oxygen 75% 03/20/21 07:37: Urine Color YELLOW, Urine Clarity CLEAR, Urine pH 6.0, Urine Specific [place] 1.015L, Urine Protein NEGATIVE, Urine Glucose (UA) NEGATIVE, Urine Ketones NEGATIVE, Urine Nitrite NEGATIVE, Urine Bilirubin NEGATIVE, Urine Urobilinogen 0.2, Urine Leukocyte Esterase NEGATIVE, Urine RBC (Auto) NEGATIVE, Urine RBC NONE, Urine WBC RARE, Urine Squamous Epithelial Cells 0-2, Urine Crystals NONE, Urine Bacteria TRACE, Urine Casts NONE, Urine Mucus NEGATIVE, Urine Culture Indicated CULTURE PENDING 03/20/21 07:50: Lactic Acid Level 2.05*H 03/20/21 10:25: Lactic Acid Level 2.09*H 03/20/21 12:45: Lactic Acid Level 2.05*H Assessment/Plan Assessment/Plan Assessment/Plan Acute respiratory distress Left pneumothorax Covid pneumonia Patient with left pneumothorax. Will place Thora vent. Patient understands risk and benefits and wishes to proceed. Patient will be placed in the ICU. Procedure left chest Thora vent placement Left chest was prepped draped in sterile fashion timeout is performed. 4 mL of 1% lidocaine was used anesthetize the skin and chest wall. This was applied in the midclavicular areas third intercostal space. Low blade scalpel used to make a small skin incision the thoracentesis catheter and trocar inserted through the incision to the chest wall until into the chest cavity and the catheter was advanced and the trocar was removed. The valve was emptied using the syringe pump. The Thora vent valve demonstrated motion. It is secured in the usual fashion. Patient taught procedure well with any complications chest x-ray pending. Patient CT the catheter has withdrawn outside of the chest cavity. Very minimal pneumothorax present. Removed the Thoravent. Since very small pneumothorax to place safely. We will follow with serial chest x-rays. If enlarges will need to have thoracostomy tube/pigtail catheter placed. CORNELIUS LEON DO Mar 20, 2021 15:42
[2021-03-20] MEDS: ALPRAZolam 0.25 MG (XANAX) TAB PO PRN (19:59)
[2021-03-21] MEDS: CEFEPIME INJECTION 1,000 MG in NS (IVPB) 50 ML IV SCH ×5 (00:44→23:55)
[2021-03-21] MEDS: NS IV 1000 ML 1,000 ML IV SCH ×2 (00:45→06:23)
[2021-03-21] MEDS: RT-ALBUTEROL HFA 8.5 GM INHALER IH SCH ×3 (02:14→07:24)
[2021-03-21] MEDS: ALPRAZolam 0.25 MG (XANAX) TAB PO PRN ×2 (03:14→18:33)
[2021-03-21] MEDS: KCL 20 MEQ TAB (K-DUR) PO SCH (05:07)
[2021-03-21] MEDS: POTASSIUM CL 10MEQ/50ML IVPB 50 ML IV SCH (05:07)
[2021-03-21] MEDS: MAGNESIUM 1 GM/100 ML IVPB 100 ML IV SCH (05:07)
[2021-03-21 05:47] LABS: BASOPHILS # (AUTO) 0.1 10^3/uL (0.0-0.1); BASOPHILS % (AUTO) 0 % (0-10); EOSINOPHILS # (AUTO) 0.1 10^3/uL (0.0-0.3); EOSINOPHILS % (AUTO) 1 % (0-10); HEMATOCRIT 41 % (35-52); HEMOGLOBIN 13.5 g/dL (11.5-16.0); LYMPHOCYTES # (AUTO) 1.9 10^3/uL (1.0-4.0); LYMPHOCYTES % (AUTO) 12 % (12-44); MEAN CORPUSCULAR HEMOGLOBIN 29 pg (25-34); MEAN CORPUSCULAR HGB CONC 33 g/dL (32-36); MEAN CORPUSCULAR VOLUME 88 fL (80-99); MEAN PLATELET VOLUME 9.1 fL (9.0-12.2); MONOCYTES # (AUTO) 1.2 10^3/uL (0.0-1.0); MONOCYTES % (AUTO) 7 % (0-12); NEUTROPHILS # (AUTO) 12.8 10^3/uL (1.8-7.8); NEUTROPHILS % (AUTO) 79 % (42-75); PLATELET COUNT 352 10^3/uL (130-400); WHITE BLOOD COUNT 16.1 10^3/uL (4.3-11.0)
[2021-03-21 05:56] LABS: ALBUMIN 3.4 GM/DL (3.2-4.5); POTASSIUM 4.1 MMOL/L (3.6-5.0)
[2021-03-21 05:57] LABS: CALCIUM 8.3 MG/DL (8.5-10.1)
[2021-03-21 05:59] LABS: TOTAL PROTEIN 6.3 GM/DL (6.4-8.2)
[2021-03-21] MEDS ORDERED: NON-FORMULARY MEDICATION 1 EA EA (Nabumetone 750 MG) PO PRN (06:00)
[2021-03-21] MEDS ORDERED: BENZONATATE 100 MG (TESSALON) CAPSULE PO PRN (06:00)
[2021-03-21 06:02] LABS: CREATININE SERUM 0.73 MG/DL (0.60-1.30)
--- NOTE | 2021-03-21 06:02 | Diagnostic Imaging Report ---
INDICATION: Follow-up left pneumothorax. EXAMINATION: Chest 03/21/2021. COMPARISON: 03/20/2021 FINDINGS: There are persistent diffuse bilateral infiltrates right worse than left. There is a persistent left apical pneumothorax which appears stable. There are no significant effusions. The heart and pulmonary vasculature unchanged. IMPRESSION: 1. Persistent bilateral infiltrates right worse than left. 2. Stable appearing left pneumothorax. Dictated by: Dictated on workstation # [id number]
[2021-03-21 06:06] LABS: MAGNESIUM 2.1 MG/DL (1.6-2.4)
[2021-03-21] MEDS ORDERED: NAPROXEN 250 MG (NAPROSYN) TABLET PO PRN (06:15)
--- NOTE | 2021-03-21 07:56 | Progress Note - Surgery ---
ELVIS STEVENSON 03/21/21 0756: Subjective Date Seen by a Provider: Mar 21, 2021 Time Seen by a Provider: 07:26 Subjective/Events-last exam Pt resting comfortably in bed. She denies any pain or difficulty breathing. (remains on vapotherm 30/65 with O2 sats in low 90s) CXR still shows stable PNX in left upper lobe area - physical exam also reveals absent breath sounds at this location. Breath sounds also distant in lower lobes B/L, consistant with infiltrates on CXR associated with post COVID PNA. Occlusive dressing over previous thorovent site is sealed, but contains air. Pt has a productive cough, but no hemoptisis or purulence in sputum. Review of Systems General: No Chills, No Night Sweats, No Fatigue, No Malaise HEENT: No Head Aches, No Eye Pain, No Ear Pain, No Sore Throat Pulmonary: No Dyspnea; Cough Cardiovascular: No: Chest Pain, Palpitations, Orthopnea, Edema Gastrointestinal: No: Nausea, Vomiting, Abdominal Pain, Diarrhea, Constipation Genitourinary: No Dysuria, No Frequency, No Incontinence, No Hematuria Musculoskeletal: No: neck pain, shoulder pain, back pain, hand pain Neurological: No: Weakness, Numbness, Confusion Focused Exam Lactate Level 03/20/21 10:25: Lactic Acid Level 2.09*H 03/20/21 12:45: Lactic Acid Level 2.05*H 03/20/21 19:15: Lactic Acid Level 1.25 Objective Exam Vital Signs Date Time Temp Pulse Resp B/P (MAP) Pulse Ox O2 Delivery O2 Flow Rate FiO2 03/21/21 07:24 92 Vapotherm 30.00 85 03/21/21 06:57 Vapotherm 30.00 85.00 03/21/21 06:00 107 134/87 Vapotherm 30.00 65.00 03/21/21 05:00 96 124/78 Vapotherm 30.00 65.00 03/21/21 04:00 Vapotherm 30.00 65 03/21/21 04:00 92 122/77 Vapotherm 30.00 65.00 03/21/21 03:00 107 103/55 Vapotherm 30.00 65.00 03/21/21 02:14 95 Vapotherm 30.00 65 03/21/21 02:00 103 115/73 Vapotherm 30.00 65.00 03/21/21 01:00 101 03/21/21 01:00 101 115/79 Vapotherm 30.00 65.00 03/21/21 00:45 36.9 Vapotherm 30.00 65.00 03/20/21 23:59 Vapotherm 30.00 65 03/20/21 21:54 94 Vapotherm 30.00 70 03/20/21 20:00 Vapotherm 30.00 70 03/20/21 19:47 36.6 03/20/21 19:00 114 03/20/21 18:50 94 Vapotherm 30.00 70 03/20/21 18:15 Vapotherm 30.00 70.00 03/20/21 18:00 120 111/66 96 Vapotherm 35.00 80.00 03/20/21 17:00 112 109/75 97 Vapotherm 35.00 80.00 03/20/21 16:11 36.9 03/20/21 16:00 118 115/75 Vapotherm 35.00 80.00 03/20/21 16:00 36.9 03/20/21 15:56 Vapotherm 03/20/21 15:14 Vapotherm 35.00 80.00 03/20/21 15:02 93 Vapotherm 35.00 80 03/20/21 15:00 113 28 120/69 94 Vapotherm 35.00 85.00 03/20/21 14:47 Vapotherm 35.00 85.00 03/20/21 14:00 108 35 116/72 97 Vapotherm 40.00 100.00 03/20/21 13:00 108 03/20/21 13:00 109 29 101/64 97 Vapotherm 40.00 100.00 03/20/21 12:43 Vapotherm 03/20/21 12:00 109 32 80 Vapotherm 40.00 100.00 03/20/21 12:00 Vapotherm 40.00 100.00 03/20/21 11:20 36.7 03/20/21 11:00 106 29 107/62 91 Vapotherm 35.00 85.00 03/20/21 10:37 Vapotherm 35.00 85.00 03/20/21 10:22 Vapotherm 35.00 75.00 03/20/21 10:00 103 33 106/64 96 Vapotherm 40.00 85.00 03/20/21 09:44 35.9 110 92 85 03/20/21 09:00 110 27 105/64 93 Vapotherm 40.00 85.00 03/20/21 08:52 91 Vapotherm 40.00 85 03/20/21 08:47 35.9 Vapotherm 40.00 85.00 03/20/21 08:42 107 03/20/21 08:41 90 Vapotherm 35.00 80 03/20/21 08:35 Vapotherm 03/20/21 08:02 110 121/68 94 03/20/21 08:00 148/68 I & O 03/21/21 06:59 Intake Total 400 ml Balance 400 ml Capillary Refill : Less Than 3 Seconds General Appearance: No Apparent Distress, WD/WN HEENT: PERRL/EOMI, Pharynx Normal, Moist Mucous Membranes Neck: Full Range of Motion, Non Tender, Supple Respiratory: Chest Non Tender, Lungs Clear, No Accessory Muscle Use, No Respiratory Distress, Decreased Breath Sounds Cardiovascular: No Edema, No Gallop, No JVD, No Murmur, Normal Peripheral Pulses, Tachycardia Peripheral Pulses: 2+ Radial Pulses (R), 2+ Radial Pulses (L) Gastrointestinal: non tender, soft, no organomegaly, no pulsatile mass Extremity: Normal Capillary Refill, Normal Inspection, Normal Range of Motion, Non Tender, No Calf Tenderness, No Pedal Edema Neurologic/Psychiatric: Alert, Oriented x3, No Motor/Sensory Deficits, Normal Mood/Affect Skin: Normal Color, Warm/Dry Lymphatic: No Adenopathy (cervical or axillary) Results Lab Laboratory Tests 03/20/21 10:25: Lactic Acid Level 2.09*H 03/20/21 12:45: Lactic Acid Level 2.05*H 03/20/21 19:15: Lactic Acid Level 1.25 03/21/21 05:10: White Blood Count 16.1H, Red Blood Count 4.62, Hemoglobin 13.5, Hematocrit 41, Mean Corpuscular Volume 88, Mean Corpuscular Hemoglobin 29, Mean Corpuscular Hemoglobin Concent 33, Red Cell Distribution Width 13.5, Platelet Count 352, Mean Platelet Volume 9.1, Immature Granulocyte % (Auto) 1, Neutrophils (%) (Auto) 79H, Lymphocytes (%) (Auto) 12, Monocytes (%) (Auto) 7, Eosinophils (%) (Auto) 1, Basophils (%) (Auto) 0, Neutrophils # (Auto) 12.8H, Lymphocytes # (Auto) 1.9, Monocytes # (Auto) 1.2H, Eosinophils # (Auto) 0.1, Basophils # (Auto) 0.1, Immature Granulocyte # (Auto) 0.1, Sodium Level 137, Potassium Level 4.1, Chloride Level 105, Carbon Dioxide Level 21, Anion Gap 11, Blood Urea Nitrogen 9, Creatinine 0.73, Estimat Glomerular Filtration Rate 85, BUN/Creatinine Ratio 12, Glucose Level 101, Calcium Level 8.3L, Corrected Calcium 8.8, Phosphorus Level 4.0, Magnesium Level 2.1, Total Bilirubin 1.0, Aspartate Amino Transf (AST/SGOT) 18, Alanine Aminotransferase (ALT/SGPT) 24, Alkaline Phosphatase 77, Total Protein 6.3L, Albumin 3.4 Microbiology 03/20/21 Gram Stain - Final, Resulted 03/20/21 Sputum Culture, Resulted Pending Assessment/Plan Assessment/Plan Assessment/Plan Acute respiratory distress Left pneumothorax Covid pneumonia Plan: monitor PNX size to ensure is dose not enlarge - q12hr cxr ABX for BL infiltrates and COVID PNA Conservative managment at this time. CORNELIUS FISHER DO 03/21/21 1125: Subjective Subjective/Events-last exam Patient feeling better than yesterday. She is on Vapotherm. Chest x-ray is showing stable left pneumothorax very small. Patient has no new complaints. Denies any nausea vomiting fever sweats chills shortness of breath or chest pain. Objective Exam General Appearance: No Apparent Distress, WD/WN HEENT: PERRL/EOMI, Normal ENT Inspection Neck: Full Range of Motion, Non Tender, Supple Respiratory: Chest Non Tender, No Accessory Muscle Use, Decreased Breath Sounds Cardiovascular: No JVD, Tachycardia Gastrointestinal: non tender, soft, no organomegaly Neurologic/Psychiatric: Alert, Oriented x3 Skin: Normal Color, Warm/Dry Lymphatic: No Adenopathy (cervical or axillary) Assessment/Plan Assessment/Plan Assessment/Plan Acute respiratory distress Left pneumothorax Covid pneumonia Plan: monitor PNX size not large enough to place thoracstomy tube at this time ABX for BL infiltrates and COVID PNA Conservative management at this time. repeat x ray in am or if worsening breathing. Supervisory-Addendum Brief Verification & Attestation Participated in pt care: history, MDM, physical Personally performed: exam, history, MDM, supervision of care Care discussed with: Medical Student Procedures: n/a Results interpretation: Verified all documentation Verification and Attestation of Medical Student E/M Service A medical student performed and documented this service in my presence. I reviewed and verified all information documented by the medical student and made modifications to such information, when appropriate. I personally performed the physical exam and medical decision making. Cornelius Fisher, Mar 21, 2021,11:38 ELVIS STEVENSON Mar 21, 2021 07:56 CORNELIUS FISHER DO Mar 21, 2021 11:25
[2021-03-21] MEDS: ENOXAPARIN 40 MG/0.4 ML (LOVENOX) SYR SC SCH (08:04)
[2021-03-21] MEDS: LOSARTAN 100 MG (COZAAR) TABLET PO SCH (08:04)
[2021-03-21] MEDS: guaiFENesin (MUCINEX) 600 MG TAB PO SCH ×2 (08:04→20:35)
[2021-03-21] MEDS: SENNA W/DOCUSATE (SENOKOT S) TABLET PO SCH ×2 (08:05→20:36)
[2021-03-21] MEDS: polyethylene glycoL POWDER 17 GM (MIRALAX) PACK PO SCH ×2 (08:05→20:36)
--- NOTE | 2021-03-21 10:51 | Progress Note - Hospitalist ---
Subjective HPI/CC On Admission Date Seen by Provider: Mar 21, 2021 Time Seen by Provider: 11:30 CC: SOB HPI: This is a 51-year-old [facility] female patient who presents with SOB the past three days, worsened since she had Covid. She was found to have a pneumothorax on the left side of 50%, a Pleuradex catheter was placed by Dr. Fisher and she will no longer need isolation but will need ICU due to requirement of max vapotherm at 40 liters and 100% and WBC of 26,000, in need of close monitoring due to high risk for decompensation. Subjective/Events-last exam Pt is improved Requiring Vapotherm 40/100 satting in the low 90% Thoravent had come loose and was not replaced since pneumothorax appeared to be resolved Checked meds and labs Labs stable Review of Systems General: Fatigue, Malaise Pulmonary: Dyspnea Focused Exam Lactate Level 03/20/21 10:25: Lactic Acid Level 2.09*H 03/20/21 12:45: Lactic Acid Level 2.05*H 03/20/21 19:15: Lactic Acid Level 1.25 Objective Exam Vital Signs Vital Signs Date Time Temp Pulse Resp B/P (MAP) Pulse Ox O2 Delivery O2 Flow Rate FiO2 03/22/21 05:18 Vapotherm 35.00 75.00 03/22/21 04:00 109 38 126/77 90 03/22/21 04:00 75 03/22/21 00:16 37.4 Capillary Refill : Less Than 3 Seconds General Appearance: WD/WN, Anxious, Chronically ill, Mild Distress Respiratory: Accessory Muscle Use, Decreased Breath Sounds Cardiovascular: Regular Rate, Rhythm Neurologic/Psychiatric: Alert, Oriented x3, No Motor/Sensory Deficits, Normal Mood/Affect Results/Procedures Lab Patient resulted labs reviewed. Assessment/Plan Assessment and Plan Assess & Plan/Chief Complaint Assessment: Acute hypoxic respiratory failure Left-sided pneumothorax Post Covid syndrome anxiety Depression Hypertension Leukocytosis Plan: Vapotherm Pneumothorax management per Dr. Fisher Home meds 03/21/2021: Supportive care Max Vapotherm Critical Care Critically Ill Patient Diagnosis/Problems Diagnosis/Problems (1) Pneumonia due to COVID-19 virus Status: Acute (2) Pneumothorax on left Status: Acute (3) Hypoxia Status: Acute JAMES CRAIG DO Mar 21, 2021 10:51
--- NOTE | 2021-03-21 12:22 | Tele-ICU Progress Note ---
Subjective Date Seen by a Provider: Mar 21, 2021 Time Seen by a Provider: 12:18 Subjective/Events-last exam feeling some better but requiring more oxygen. cxr showed stable left ptx Review of Systems ros per rn Sepsis Event Evaluation Height, Weight, BMI Height: '" Weight: lbs. oz. kg; 34.77 BMI Method: Focused Exam Lactate Level 03/20/21 10:25: Lactic Acid Level 2.09*H 03/20/21 12:45: Lactic Acid Level 2.05*H 03/20/21 19:15: Lactic Acid Level 1.25 Exam Exam Patient acknowledged, consented, and participated in this virtual visit which was conducted using real time audio/video Vital Signs Date Time Temp Pulse Resp B/P (MAP) Pulse Ox O2 Delivery O2 Flow Rate FiO2 03/21/21 12:11 98 Vapotherm 35.00 95 03/21/21 11:29 36.4 03/21/21 10:00 105 30 115/71 90 Vapotherm 40.00 100.00 03/21/21 09:00 109 31 125/58 92 Vapotherm 40.00 100.00 03/21/21 08:45 Vapotherm 30.00 65 03/21/21 08:03 Vapotherm 35.00 95.00 03/21/21 08:00 116 31 108/66 93 Vapotherm 30.00 85.00 03/21/21 07:47 36.6 03/21/21 07:24 92 Vapotherm 30.00 85 03/21/21 07:00 105 31 117/61 92 Vapotherm 30.00 85.00 03/21/21 07:00 105 03/21/21 06:57 Vapotherm 30.00 85.00 03/21/21 06:00 107 134/87 Vapotherm 30.00 65.00 03/21/21 05:00 96 124/78 Vapotherm 30.00 65.00 03/21/21 04:00 Vapotherm 30.00 65 03/21/21 04:00 92 122/77 Vapotherm 30.00 65.00 03/21/21 03:00 107 103/55 Vapotherm 30.00 65.00 03/21/21 02:14 95 Vapotherm 30.00 65 03/21/21 02:00 103 115/73 Vapotherm 30.00 65.00 03/21/21 01:00 101 03/21/21 01:00 101 115/79 Vapotherm 30.00 65.00 03/21/21 00:45 36.9 Vapotherm 30.00 65.00 03/20/21 23:59 Vapotherm 30.00 65 03/20/21 21:54 94 Vapotherm 30.00 70 03/20/21 20:00 Vapotherm 30.00 70 03/20/21 19:47 36.6 03/20/21 19:00 114 03/20/21 18:50 94 Vapotherm 30.00 70 03/20/21 18:15 Vapotherm 30.00 70.00 03/20/21 18:00 120 111/66 96 Vapotherm 35.00 80.00 03/20/21 17:00 112 109/75 97 Vapotherm 35.00 80.00 03/20/21 16:11 36.9 03/20/21 16:00 118 115/75 Vapotherm 35.00 80.00 03/20/21 16:00 36.9 03/20/21 15:56 Vapotherm 03/20/21 15:14 Vapotherm 35.00 80.00 03/20/21 15:02 93 Vapotherm 35.00 80 03/20/21 15:00 113 28 120/69 94 Vapotherm 35.00 85.00 03/20/21 14:47 Vapotherm 35.00 85.00 03/20/21 14:00 108 35 116/72 97 Vapotherm 40.00 100.00 03/20/21 13:00 108 03/20/21 13:00 109 29 101/64 97 Vapotherm 40.00 100.00 03/20/21 12:43 Vapotherm I & O 03/21/21 07:00 Intake Total 400 ml Balance 400 ml Height & Weight Height: '" Weight: lbs. oz. kg; 34.77 BMI Method: General Appearance: No Apparent Distress, WD/WN HEENT: PERRL/EOMI, Normal ENT Inspection Neck: Full Range of Motion, Non Tender, Supple Respiratory: Chest Non Tender, No Accessory Muscle Use, Decreased Breath Sounds Cardiovascular: No JVD, Tachycardia Capillary Refill: Less Than 3 Seconds Peripheral Pulses: 2+ Radial Pulses (R), 2+ Radial Pulses (L) Gastrointestinal: non tender, soft, no organomegaly Extremity: Normal Capillary Refill, Normal Inspection, Normal Range of Motion, Non Tender, No Calf Tenderness, No Pedal Edema Neurologic/Psychiatric: Alert, Oriented x3 Skin: Normal Color, Warm/Dry Lymphatic: No Adenopathy (cervical or axillary) Other comments pe per rn Results Lab Laboratory Tests 03/20/21 05:05 03/20/21 05:06 03/21/21 05:10 Radiology NAME: EMILI [facility] REC#: [id number] PT STATUS: ADM IN : 1970 PHYSICIAN: CORNELIUS LEON DO ADMIT DATE: 03/20/21/ICU Signed Date of Exam:03/21/21 CHEST 1 VIEW, AP/PA ONLY INDICATION: Follow-up left pneumothorax. EXAMINATION: Chest 03/21/2021. COMPARISON: 03/20/2021 FINDINGS: There are persistent diffuse bilateral infiltrates right worse than left. There is a persistent left apical pneumothorax which appears stable. There are no significant effusions. The heart and pulmonary vasculature unchanged. IMPRESSION: 1. Persistent bilateral infiltrates right worse than left. 2. Stable appearing left pneumothorax. Dictated by: Dictated on workstation # [id number] Dict: 03/21/21 0559 Trans: 03/21/21 0845 [id number] Interpreted by: DAIN CASTRO MD Electronically signed by: DAIN CASTRO MD 03/21/21 0845 Assessment/Plan Assessment/Plan 1. PNEUMOTHORAX LEFT DUE TO COVID-19 PNEUMONIA. S/P THORADRAIN. . now thora drain removed. has small lt ptx. 2. COVID -19 PNEUMONIA 3. ACUTE AND CHR. HYPOXIC RESPIRATORY FAILURE.. 4. HIGH RISK FOR DVT AND PE. 5.MODERATE OBESITY. 6. SUSPECT SUPER ADDED BACTERIAL PNEUMONIA. RECOMMENDATIONS. 1. CHEST TUBE INSERTION AND MANAGEMENT PER GEN. SURGERY. 2. OXYGENATE WITH VAPOTHERM. 3. IV ANTIBIOTICS PER PCP. 4. DVT PROPHYLAXIS WITH LOVENOX. 5. IV DEXAMETHASONE AND MONITOR GLUCOSE LEVELS. 6. ULCER PROPHYLAXIS WITH PO PE SHARON THACKER MD Mar 21, 2021 12:22
[2021-03-21] MEDS ORDERED: RT-ALBUTEROL HFA 8.5 GM INHALER IH SCH (15:00)
[2021-03-22] MEDS: ALPRAZolam 0.25 MG (XANAX) TAB PO PRN ×3 (01:38→20:18)
[2021-03-22] MEDS: CEFEPIME INJECTION 1,000 MG in NS (IVPB) 50 ML IV SCH ×4 (05:34→23:56)
[2021-03-22] MEDS: NS IV 1000 ML 1,000 ML IV SCH ×3 (05:35→22:57)
[2021-03-22 06:06] LABS: BASOPHILS % (AUTO) 0 % (0-10); EOSINOPHILS # (AUTO) 0.2 10^3/uL (0.0-0.3); EOSINOPHILS % (AUTO) 1 % (0-10); HEMATOCRIT 46 % (35-52); HEMOGLOBIN 15.2 g/dL (11.5-16.0); LYMPHOCYTES # (AUTO) 1.7 10^3/uL (1.0-4.0); LYMPHOCYTES % (AUTO) 10 % (12-44); MEAN CORPUSCULAR HEMOGLOBIN 29 pg (25-34); MEAN CORPUSCULAR HGB CONC 33 g/dL (32-36); MEAN CORPUSCULAR VOLUME 87 fL (80-99); MEAN PLATELET VOLUME 9.3 fL (9.0-12.2); MONOCYTES # (AUTO) 1.2 10^3/uL (0.0-1.0); MONOCYTES % (AUTO) 7 % (0-12); NEUTROPHILS # (AUTO) 14.7 10^3/uL (1.8-7.8); NEUTROPHILS % (AUTO) 82 % (42-75); PLATELET COUNT 368 10^3/uL (130-400)
--- NOTE | 2021-03-22 06:18 | Progress Note - Hospitalist ---
Subjective HPI/CC On Admission Date Seen by Provider: Mar 22, 2021 Time Seen by Provider: 11:00 CC: SOB HPI: This is a 51-year-old [facility] female patient who presents with SOB the past three days, worsened since she had Covid. She was found to have a pneumothorax on the left side of 50%, a Pleuradex catheter was placed by Dr. Fisher and she will no longer need isolation but will need ICU due to requirement of max vapotherm at 40 liters and 100% and WBC of 26,000, in need of close monitoring due to high risk for decompensation. Subjective/Events-last exam Patient having more difficulty Left-sided pneumothorax is reappeared Dr. Fisher will place chest tube Tachycardia noted O2 sat 85% on max Vapotherm Family at the bedside Review of Systems General: Fatigue, Malaise Pulmonary: Dyspnea Focused Exam Lactate Level 03/20/21 10:25: Lactic Acid Level 2.09*H 03/20/21 12:45: Lactic Acid Level 2.05*H 03/20/21 19:15: Lactic Acid Level 1.25 Objective Exam Vital Signs Vital Signs Date Time Temp Pulse Resp B/P (MAP) Pulse Ox O2 Delivery O2 Flow Rate FiO2 03/22/21 15:02 95 Vapotherm 40.00 100 03/22/21 14:00 105 28 97/68 03/22/21 12:11 35.7 Capillary Refill : Less Than 3 Seconds General Appearance: Anxious, Chronically ill, Mild Distress Respiratory: No Respiratory Distress, Accessory Muscle Use, Decreased Breath Sounds (Left side) Cardiovascular: Regular Rate, Rhythm Neurologic/Psychiatric: Alert, Oriented x3, No Motor/Sensory Deficits, Normal Mood/Affect Results/Procedures Lab Laboratory Tests 03/22/21 05:30 Patient resulted labs reviewed. Assessment/Plan Assessment and Plan Assess & Plan/Chief Complaint Assessment: Acute hypoxic respiratory failure Left-sided pneumothorax Thora vent discontinued after arriving in the ICU placed chest tube today 03/22/[address] Fisher Post Covid syndrome Anxiety Depression Hypertension Leukocytosis Plan: Vapotherm Pneumothorax management per Dr. Fisher [place] [facility] 03/21/2021: Supportive care Max Vapotherm 03/22/2021: Chest tube placement Critical Care Critically Ill Patient Diagnosis/Problems Diagnosis/Problems (1) Pneumonia due to COVID-19 virus Status: Acute (2) Pneumothorax on left Status: Acute (3) Hypoxia Status: Acute JAMES CRAIG DO Mar 22, 2021 06:18
[2021-03-22 06:33] LABS: BILIRUBIN,TOTAL 1.1 MG/DL (0.1-1.0); CALCIUM 8.8 MG/DL (8.5-10.1); CREATININE SERUM 0.76 MG/DL (0.60-1.30); MAGNESIUM 2.1 MG/DL (1.6-2.4); PHOSPHORUS 3.6 MG/DL (2.3-4.7); POTASSIUM 3.8 MMOL/L (3.6-5.0); TOTAL PROTEIN 7.6 GM/DL (6.4-8.2)
[2021-03-22] MEDS: morphine INJ 10 MG/ML 1ML (SYR OR VIAL) IVP PRN ×3 (06:40→13:52)
[2021-03-22] MEDS: KCL 20 MEQ TAB (K-DUR) PO SCH (06:51)
[2021-03-22] MEDS: POTASSIUM CL 10MEQ/50ML IVPB 50 ML IV SCH (06:51)
[2021-03-22] MEDS: MAGNESIUM 1 GM/100 ML IVPB 100 ML IV SCH (06:51)
--- NOTE | 2021-03-22 07:39 | Progress Note - Surgery ---
PALMABUDDYELVIS NELSON 03/22/21 0739: Subjective Date Seen by a Provider: Mar 22, 2021 Time Seen by a Provider: 07:16 Subjective/Events-last exam Pt was sitting in chair with sister at her side. Her breath sounds have not improved from yesterday, but also not worse. She states that she is feeling some pain in her back in the T7-T9 area. Pt is anxious about her prognosis and frustrated with her progress, encouraged pt stating that it will likely take some time for her healing and recovery. Pt reports no N/V/F/C - she also reports normal urinary and bowel function. Review of Systems General: No Chills, No Night Sweats, No Fatigue, No Malaise HEENT: No Head Aches, No Visual Changes, No Ear Pain, No Dysphasia Pulmonary: No Dyspnea; Cough, Pleuritic Chest Pain Cardiovascular: No: Chest Pain, Palpitations, Orthopnea, Edema, Lt Headedness Gastrointestinal: No: Nausea, Vomiting, Abdominal Pain, Diarrhea, Constipation, Melena, Hematochezia Genitourinary: No Dysuria, No Frequency, No Incontinence, No Hematuria Musculoskeletal: back pain; No: neck pain, shoulder pain, hand pain Neurological: No: Weakness, Numbness, Change in speech, Confusion, Seizures Focused Exam Lactate Level 03/20/21 10:25: Lactic Acid Level 2.09*H 03/20/21 12:45: Lactic Acid Level 2.05*H 03/20/21 19:15: Lactic Acid Level 1.25 Objective Exam Vital Signs Date Time Temp Pulse Resp B/P (MAP) Pulse Ox O2 Delivery O2 Flow Rate FiO2 03/22/21 06:35 Vapotherm 40.00 100.00 03/22/21 06:31 Vapotherm 35.00 90.00 03/22/21 06:00 102 25 120/75 90 Vapotherm 35.00 75.00 03/22/21 05:18 Vapotherm 35.00 75.00 03/22/21 05:00 105 20 112/79 88 Vapotherm 30.00 75.00 03/22/21 04:00 109 38 126/77 90 Vapotherm 30.00 75.00 03/22/21 04:00 Vapotherm 30.00 75 03/22/21 03:00 105 25 119/80 90 Vapotherm 30.00 75.00 03/22/21 02:00 102 32 107/60 92 Vapotherm 30.00 75.00 03/22/21 01:00 89 03/22/21 01:00 89 30 103/51 94 Vapotherm 30.00 75.00 03/22/21 00:16 37.4 03/22/21 00:00 Vapotherm 30.00 75 03/22/21 00:00 102 32 127/82 92 Vapotherm 30.00 75.00 03/21/21 23:00 94 32 110/75 93 Vapotherm 30.00 75.00 03/21/21 22:00 98 27 104/73 90 Vapotherm 30.00 75.00 03/21/21 21:00 102 33 113/71 90 Vapotherm 30.00 75.00 03/21/21 20:44 37.4 03/21/21 20:00 107 32 116/93 92 Vapotherm 30.00 75.00 03/21/21 20:00 37.4 03/21/21 20:00 Vapotherm 30.00 75 03/21/21 19:00 106 30 118/76 95 Vapotherm 30.00 75.00 03/21/21 19:00 106 03/21/21 18:39 95 Vapotherm 30.00 75 03/21/21 18:00 109 32 114/77 95 Vapotherm 30.00 75.00 03/21/21 17:00 107 36 117/29 93 Vapotherm 30.00 75.00 03/21/21 16:07 36.5 03/21/21 16:00 110 27 122/65 95 Vapotherm 30.00 75.00 03/21/21 15:36 98 Vapotherm 35.00 95 03/21/21 15:00 103 24 123/81 94 Vapotherm 30.00 75.00 03/21/21 14:36 Vapotherm 30.00 75.00 03/21/21 14:00 116 27 127/78 97 Vapotherm 35.00 95.00 03/21/21 13:00 112 03/21/21 13:00 112 25 119/79 98 Vapotherm 35.00 95.00 03/21/21 12:11 98 Vapotherm 35.00 95 03/21/21 12:08 Vapotherm 35.00 95.00 03/21/21 12:00 110 21 109/68 99 Vapotherm 40.00 100.00 03/21/21 11:29 36.4 03/21/21 11:00 103 31 127/76 95 Vapotherm 40.00 100.00 03/21/21 10:00 105 30 115/71 90 Vapotherm 40.00 100.00 03/21/21 09:00 109 31 125/58 92 Vapotherm 40.00 100.00 03/21/21 08:45 Vapotherm 30.00 65 03/21/21 08:03 Vapotherm 35.00 95.00 03/21/21 08:00 116 31 108/66 93 Vapotherm 30.00 85.00 03/21/21 07:47 36.6 I & O 03/22/21 07:00 Intake Total 3245 ml Output Total 650 ml Balance 2595 ml Capillary Refill : Less Than 3 Seconds General Appearance: No Apparent Distress, WD/WN, Anxious HEENT: PERRL/EOMI, Pharynx Normal Neck: Full Range of Motion, Non Tender, Supple Respiratory: Chest Non Tender, No Accessory Muscle Use, No Respiratory Distress, Decreased Breath Sounds (Left apex sounds are absent - also BL lower lobe sounds are distant) Cardiovascular: Regular Rate, Rhythm, No Edema, No Gallop, No Murmur, Normal P eripheral Pulses Peripheral Pulses: 2+ Radial Pulses (R), 2+ Radial Pulses (L) Gastrointestinal: normal bowel sounds, non tender, soft, no organomegaly, no pulsatile mass Extremity: Normal Capillary Refill, Normal Inspection, Normal Range of Motion, Non Tender, No Calf Tenderness, No Pedal Edema Neurologic/Psychiatric: Alert, Oriented x3, No Motor/Sensory Deficits, Normal Mood/Affect Skin: Normal Color, Warm/Dry Lymphatic: No Adenopathy (cervical or axillary) Results Lab Laboratory Tests 03/22/21 05:30: White Blood Count 18.0H, Red Blood Count 5.21H, Hemoglobin 15.2, Hematocrit 46, Mean Corpuscular Volume 87, Mean Corpuscular Hemoglobin 29, Mean Corpuscular Hemoglobin Concent 33, Red Cell Distribution Width 13.3, Platelet Count 368, Mean Platelet Volume 9.3, Immature Granulocyte % (Auto) 1, Neutrophils (%) (Auto) 82H, Lymphocytes (%) (Auto) 10L, Monocytes (%) (Auto) 7, Eosinophils (%) (Auto) 1, Basophils (%) (Auto) 0, Neutrophils # (Auto) 14.7H, Lymphocytes # (Auto) 1.7, Monocytes # (Auto) 1.2H, Eosinophils # (Auto) 0.2, Basophils # (Auto) 0.0, Immature Granulocyte # (Auto) 0.1, Sodium Level 137, Potassium Level 3.8, Chloride Level 103, Carbon Dioxide Level 18L, Anion Gap 16H, Blood Urea Nitrogen 12, Creatinine 0.76, Estimat Glomerular Filtration Rate 81, BUN/Creatinine Ratio 16, Glucose Level 95, Calcium Level 8.8, Corrected Calcium 8.8, Phosphorus Level 3.6, Magnesium Level 2.1, Total Bilirubin 1.1H, Aspartate Amino Transf (AST/SGOT) 21, Alanine Aminotransferase (ALT/SGPT) 29, Alkaline Phosphatase 99, Total Protein 7.6, Albumin 4.0 Microbiology 03/20/21 Urine Culture - Final, Complete NO GROWTH 03/20/21 Blood Culture - Preliminary, Resulted No growth 03/20/21 Gram Stain - Final, Resulted 03/20/21 Sputum Culture - Preliminary, Resulted Usual upper respiratory hero Staphylococcus aureus Assessment/Plan Assessment/Plan Assessment/Plan Acute respiratory distress Left pneumothorax Covid pneumonia Plan: monitor PNX - currently stable and not large enough to place thoracstomy tube at this time If breathing becomes more difficult will order a CXR to investigate. Otherwise continue ABX for BL infiltrates and COVID PNA and conservative management at this time. CORNELIUS FISHER DO 03/22/21 4565: Subjective Subjective/Events-last exam Sitting in chair. More difficulty breathing. Anxious. No other complaints at this time. Denies n/v fever sweats chills or chest pain. Objective Exam General Appearance: Anxious, Obese HEENT: PERRL/EOMI, Normal ENT Inspection Neck: Non Tender, Supple Respiratory: Chest Non Tender, No Accessory Muscle Use, No Respiratory Distress, Decreased Breath Sounds (Left apex sounds are absent - also BL lower lobe sounds are distant) Cardiovascular: Regular Rate, Rhythm, No JVD Gastrointestinal: non tender, soft Extremity: Normal Inspection, Non Tender Neurologic/Psychiatric: Alert, Oriented x3 Skin: Normal Color, Warm/Dry Lymphatic: No Adenopathy (cervical or axillary) Assessment/Plan Assessment/Plan Assessment/Plan Acute respiratory distress Left pneumothorax Covid pneumonia Plan: monitor PNX - currently stable will get chest x ray now to further evaluate continue ABX for BL infiltrates and COVID PNA and conservative management at this time. Increasing left pneumothorax will place thoractostomy left chest PROCEDURE: Left thoracostomy tube placement. Left chest was prepped and draped in sterile fashion. Timeout performed. 10 mL o f 1%lidocaine was used to anesthetize area. 11 blade scalpel to make skin incision approximately at nipple line mid axillary line. Blunt dissection used to go throught subcutaneous tissue and enter above the rib. [address] and secure with 0 prolene with U stitch. Hooked up to atrium and sterile bandages applied. Chest x ray pending. Supervisory-Addendum Brief Verification & Attestation Participated in pt care: history, MDM, physical Personally performed: exam, history, MDM, supervision of care Care discussed with: Medical Student Procedures: performed (by me) Results interpretation: Verified all documentation Verification and Attestation of Medical Student E/M Service A medical student performed and documented this service in my presence. I reviewed and verified all information documented by the medical student and made modifications to such information, when appropriate. I personally performed the physical exam and medical decision making. Cornelius Fisher, Mar 22, 2021,16:41 ELVIS STEVENSON Mar 22, 2021 07:39 CORNELIUS FISHER DO Mar 22, 2021 16:45
[2021-03-22] MEDS: polyethylene glycoL POWDER 17 GM (MIRALAX) PACK PO SCH ×2 (08:49→20:18)
[2021-03-22] MEDS: LOSARTAN 100 MG (COZAAR) TABLET PO SCH (08:50)
[2021-03-22] MEDS: ENOXAPARIN 40 MG/0.4 ML (LOVENOX) SYR SC SCH (08:50)
[2021-03-22] MEDS: guaiFENesin (MUCINEX) 600 MG TAB PO SCH ×2 (08:50→20:18)
[2021-03-22] MEDS: SENNA W/DOCUSATE (SENOKOT S) TABLET PO SCH ×2 (08:50→20:19)
--- NOTE | 2021-03-22 10:29 | Diagnostic Imaging Report ---
Portable erect AP chest at 10:01. INDICATION: Pneumothorax The previous exam of 03/21/2021 noted a stable apical pneumothorax. On this exam however the pneumothorax has increased and I suspect that the pneumothorax is now in the 20-30% range. In addition there seems to be slight shift of the midline to the right and consequently there may be an element of tension developing. The left hemidiaphragm is still not inverted however. The heart is stable in size. The alveolar/interstitial infiltrates throughout the right lung seen previously are again evident and no different. There also continues to be atelectasis/pneumonia in the left perihilar region. IMPRESSION: 1. The appearance of the chest has worsened since the prior study as a pneumothorax on the left has increased in size and is now in the 20-30% range. There may also be an element of tension developing. 2. These results were called to Dr. Fisher at the time of this dictation. Critical finding Dictated by: Dictated on workstation # [id number]
[2021-03-22] MEDS ORDERED: LIDOCAINE 1% INJ 20 ML 20 ML VIAL ONE (10:53)
--- NOTE | 2021-03-22 12:06 | Diagnostic Imaging Report ---
Portable erect AP chest at 11:43. Indication: Pneumothorax The exam performed earlier today at 10:01 AM noted a 20-30% pneumothorax on the left. In the interval since the prior exam, a chest tube has been inserted. The tip of the tube is difficult to visualize but seems to overlie the medial aspect of the left upper lung. The pneumothorax seen previously has nearly completely if not completely resolved. However there are diffuse alveolar/interstitial pulmonary infiltrates throughout the left lung. Only small portions of the left lung base and left upper lobe remain aerated. The diffuse alveolar/interstitial infiltrates involving the right lung seen previously study are no different. The heart is stable in size. There is no longer any shift of mediastinum to the right. The osseous structures are intact. Impression: 1. There are mixed results. The appearance of the chest has improved following insertion of the left sided chest tube as the pneumothorax seen previously has nearly completely if not completely resolved. 2. However, there is diffuse pneumonia/atelectasis involving the left lung with only small portions of the left lung base and left upper lung still aerated. Results were discussed with Dr. Fisher. Dictated by: Dictated on workstation # [id number]
--- NOTE | 2021-03-22 13:56 | Tele-ICU Progress Note ---
Subjective Date Seen by a Provider: Mar 22, 2021 Time Seen by a Provider: 12:00 Sepsis Event Evaluation Height, Weight, BMI Height: '" Weight: lbs. oz. kg; 34.77 BMI Method: Focused Exam Lactate Level 03/20/21 10:25: Lactic Acid Level 2.09*H 03/20/21 12:45: Lactic Acid Level 2.05*H 03/20/21 19:15: Lactic Acid Level 1.25 Exam Exam Patient acknowledged, consented, and participated in this virtual visit which was conducted using real time audio/video Vital Signs Date Time Temp Pulse Resp B/P (MAP) Pulse Ox O2 Delivery O2 Flow Rate FiO2 03/22/21 13:00 108 03/22/21 12:11 35.7 03/22/21 11:00 117 128/77 84 Vapotherm 40.00 100.00 03/22/21 10:00 112 40 113/85 88 Vapotherm 40.00 100.00 03/22/21 09:00 104 36 127/88 88 Vapotherm 40.00 100.00 03/22/21 08:00 108 125/85 88 Vapotherm 40.00 100.00 03/22/21 08:00 Vapotherm 400.00 100 03/22/21 07:49 37.0 03/22/21 07:40 93 Vapotherm 43.00 100 03/22/21 07:00 108 03/22/21 07:00 104 30 106/78 88 Vapotherm 40.00 100.00 03/22/21 06:35 Vapotherm 40.00 100.00 03/22/21 06:31 Vapotherm 35.00 90.00 03/22/21 06:00 102 25 120/75 90 Vapotherm 35.00 75.00 03/22/21 05:18 Vapotherm 35.00 75.00 03/22/21 05:00 105 20 112/79 88 Vapotherm 30.00 75.00 03/22/21 04:00 109 38 126/77 90 Vapotherm 30.00 75.00 03/22/21 04:00 Vapotherm 30.00 75 03/22/21 03:00 105 25 119/80 90 Vapotherm 30.00 75.00 03/22/21 02:00 102 32 107/60 92 Vapotherm 30.00 75.00 03/22/21 01:00 89 03/22/21 01:00 89 30 103/51 94 Vapotherm 30.00 75.00 03/22/21 00:16 37.4 03/22/21 00:00 Vapotherm 30.00 75 03/22/21 00:00 102 32 127/82 92 Vapotherm 30.00 75.00 03/21/21 23:00 94 32 110/75 93 Vapotherm 30.00 75.00 03/21/21 22:00 98 27 104/73 90 Vapotherm 30.00 75.00 03/21/21 21:00 102 33 113/71 90 Vapotherm 30.00 75.00 03/21/21 20:44 37.4 03/21/21 20:00 107 32 116/93 92 Vapotherm 30.00 75.00 03/21/21 20:00 37.4 03/21/21 20:00 Vapotherm 30.00 75 03/21/21 19:00 106 30 118/76 95 Vapotherm 30.00 75.00 03/21/21 19:00 106 03/21/21 18:39 95 Vapotherm 30.00 75 03/21/21 18:00 109 32 114/77 95 Vapotherm 30.00 75.00 03/21/21 17:00 107 36 117/29 93 Vapotherm 30.00 75.00 03/21/21 16:07 36.5 03/21/21 16:00 110 27 122/65 95 Vapotherm 30.00 75.00 03/21/21 15:36 98 Vapotherm 35.00 95 03/21/21 15:00 103 24 123/81 94 Vapotherm 30.00 75.00 03/21/21 14:36 Vapotherm 30.00 75.00 03/21/21 14:00 116 27 127/78 97 Vapotherm 35.00 95.00 I & O 03/22/21 07:00 Intake Total 3245 ml Output Total 650 ml Balance 2595 ml Height & Weight Height: '" Weight: lbs. oz. kg; 34.77 BMI Method: General Appearance: No Apparent Distress, WD/WN, Anxious HEENT: PERRL/EOMI, Pharynx Normal Neck: Full Range of Motion, Non Tender, Supple Respiratory: Chest Non Tender, No Accessory Muscle Use, No Respiratory Distress, Decreased Breath Sounds (Left apex sounds are absent - also BL lower lobe sounds are distant) Cardiovascular: Regular Rate, Rhythm, No Edema, No Gallop, No Murmur, Normal Peripheral Pulses Capillary Refill: Less Than 3 Seconds Peripheral Pulses: 2+ Radial Pulses (R), 2+ Radial Pulses (L) Gastrointestinal: normal bowel sounds, non tender, soft, no organomegaly, no pulsatile mass Extremity: Normal Capillary Refill, Normal Inspection, Normal Range of Motion, Non Tender, No Calf Tenderness, No Pedal Edema Neurologic/Psychiatric: Alert, Oriented x3, No Motor/Sensory Deficits, Normal Mood/Affect Skin: Normal Color, Warm/Dry Lymphatic: No Adenopathy (cervical or axillary) Results Lab Laboratory Tests 03/21/21 05:10 03/22/21 05:30 Assessment/Plan Assessment/Plan Tele-ICU Physician , Progress Note ) Available chart/ vitals / labs / Images reviewed Video assessment done using teleICU camera, rest of exam as per RN Discussed with RN , EXAM PER RN Events overnight : Afebrile FiO2 - vt I/O = Drips: Pressors: , hemodynamically stable Consultants: iman Hospital course: - admity with PTX left , post COVID 03/22 , new chest tube -- VT 40 L 100 % A/P PTX on LEFT - s/p [id number]/22 - changed to large chest tube `03/22 Acute resp failure - hypoxia , ARDS + suspected bact PNA ( no PE on CT 03/20 - VT 40 L 100 % s/p COVID 02/16/21 with chronic resp insufficiency ( home 2 L o2 - on IV steroids Suspected bact PNA = cefepime IV - follow Lines : (Central Line Necessity Reviewed) Jiang: OG: Nutrition: Analgesia: Anxiety/ delirium VTE Prophylaxis: lenin 40 Stress Ulcer Prophylaxis: po Plans in collaboration with bedside consultants and IM MDs. Discussed with RN to reach out if any questions or concerns A total of 31 minutes of critical care time was devoted to this patient today, required to treat and/or prevent further deterioration of critical care condition ( as above) . AGVIOTA CARUSO MD Mar 22, 2021 13:56
[2021-03-22] MEDS: HYDROcodone/APAP 5 MG/325 MG (LORTAB) TAB PO PRN (20:18)
[2021-03-23] MEDS: morphine INJ 10 MG/ML 1ML (SYR OR VIAL) IVP PRN ×2 (02:07→18:01)
[2021-03-23] MEDS: ALPRAZolam 0.25 MG (XANAX) TAB PO PRN ×2 (04:06→20:17)
[2021-03-23] MEDS: HYDROcodone/APAP 5 MG/325 MG (LORTAB) TAB PO PRN (04:07)
[2021-03-23 05:24] LABS: BASOPHILS # (AUTO) 0.1 10^3/uL (0.0-0.1); BASOPHILS % (AUTO) 0 % (0-10); EOSINOPHILS # (AUTO) 0.2 10^3/uL (0.0-0.3); EOSINOPHILS % (AUTO) 1 % (0-10); HEMATOCRIT 41 % (35-52); HEMOGLOBIN 13.3 g/dL (11.5-16.0); LYMPHOCYTES # (AUTO) 1.6 10^3/uL (1.0-4.0); LYMPHOCYTES % (AUTO) 9 % (12-44); MEAN CORPUSCULAR HEMOGLOBIN 29 pg (25-34); MEAN CORPUSCULAR HGB CONC 33 g/dL (32-36); MEAN CORPUSCULAR VOLUME 88 fL (80-99); MEAN PLATELET VOLUME 9.3 fL (9.0-12.2); MONOCYTES # (AUTO) 1.4 10^3/uL (0.0-1.0); MONOCYTES % (AUTO) 8 % (0-12); NEUTROPHILS # (AUTO) 14.3 10^3/uL (1.8-7.8); NEUTROPHILS % (AUTO) 81 % (42-75); PLATELET COUNT 305 10^3/uL (130-400); WHITE BLOOD COUNT 17.6 10^3/uL (4.3-11.0)
[2021-03-23 05:57] LABS: ALBUMIN 3.3 GM/DL (3.2-4.5); POTASSIUM 3.7 MMOL/L (3.6-5.0)
[2021-03-23 05:58] LABS: CALCIUM 8.5 MG/DL (8.5-10.1)
[2021-03-23 05:59] LABS: TOTAL PROTEIN 6.2 GM/DL (6.4-8.2)
[2021-03-23] MEDS: CEFEPIME INJECTION 1,000 MG in NS (IVPB) 50 ML IV SCH ×3 (06:00→18:42)
[2021-03-23 06:01] LABS: BILIRUBIN,TOTAL 0.9 MG/DL (0.1-1.0)
[2021-03-23] MEDS: POTASSIUM CL 10MEQ/50ML IVPB 50 ML IV SCH (06:01)
[2021-03-23] MEDS: KCL 20 MEQ TAB (K-DUR) PO SCH (06:01)
[2021-03-23 06:02] LABS: PHOSPHORUS 4.2 MG/DL (2.3-4.7)
[2021-03-23 06:03] LABS: CREATININE SERUM 0.65 MG/DL (0.60-1.30)
--- NOTE | 2021-03-23 06:08 | Progress Note - Hospitalist ---
Subjective HPI/CC On Admission Date Seen by Provider: Mar 23, 2021 Time Seen by Provider: 10:00 CC: SOB HPI: This is a 51-year-old [facility] female patient who presents with SOB the past three days, worsened since she had Covid. She was found to have a pneumothorax on the left side of 50%, a Pleuradex catheter was placed by Dr. Fisher and she will no longer need isolation but will need ICU due to requirement of max vapotherm at 40 liters and 100% and WBC of 26,000, in need of close monitoring due to high risk for decompensation. Subjective/Events-last exam Patient about the same Maxed on Vapotherm Chest tube in placement Appreciate Dr. Fisher Appreciate eICU Review of Systems General: Fatigue, Malaise Pulmonary: Dyspnea Focused Exam Lactate Level 03/20/21 19:15: Lactic Acid Level 1.25 Objective Exam Vital Signs Vital Signs Date Time Temp Pulse Resp B/P (MAP) Pulse Ox O2 Delivery O2 Flow Rate FiO2 03/23/21 17:00 96 31 86/69 93 Vapotherm 40.00 100.00 03/23/21 16:00 100 03/23/21 15:59 36.2 Capillary Refill : Less Than 3 Seconds General Appearance: No Apparent Distress, WD/WN, Anxious, Chronically ill Respiratory: Lungs Clear, Normal Breath Sounds Cardiovascular: Regular Rate, Rhythm Results/Procedures Lab Laboratory Tests 03/23/21 04:45 Patient resulted labs reviewed. Assessment/Plan Assessment and Plan Assess & Plan/Chief Complaint Assessment: Acute hypoxic respiratory failure Left-sided pneumothorax Thora vent discontinued after arriving in the ICU placed chest tube 03/22/[address] Fisher Post Covid syndrome Anxiety Depression Hypertension Leukocytosis Plan: Vapotherm Pneumothorax management per Dr. Fisher [place] meds 03/21/2021: Supportive care Max Vapotherm 03/22/2021: Chest tube placement 03/23/2021: Appreciate Dr. Fisher eICU Maxed on Vapotherm Critical Care Critically Ill Patient Diagnosis/Problems Diagnosis/Problems (1) Pneumonia due to COVID-19 virus Status: Acute (2) Pneumothorax on left Status: Acute (3) Hypoxia Status: Acute JAMES CRAIG DO Mar 23, 2021 06:08
[2021-03-23] MEDS: MAGNESIUM 1 GM/100 ML IVPB 100 ML IV SCH (06:33)
--- NOTE | 2021-03-23 07:16 | Diagnostic Imaging Report ---
INDICATION: Pneumonia COMPARISON: 12/21/2020 TECHNIQUE: Single radiograph of the chest dated 03/23/2021. FINDINGS: The cardiac silhouette is stable. Pulmonary vasculature is obscured. Extensive right greater than left pulmonary opacities are again identified, not significantly changed from the prior examination. No large-volume pleural effusion. No pneumothorax. Soft tissue gas within the left chest is again identified and improved. No definite pneumothorax. Osseous structures appear stable. Left-sided chest tube is unchanged. IMPRESSION: Persistent extensive right greater than left pulmonary opacities are noted. Persistent left-sided chest tube without large volume pneumothorax. Dictated by: Dictated on workstation # [id number]
[2021-03-23] MEDS: SENNA W/DOCUSATE (SENOKOT S) TABLET PO SCH ×2 (08:38→20:18)
[2021-03-23] MEDS: ENOXAPARIN 40 MG/0.4 ML (LOVENOX) SYR SC SCH (08:38)
[2021-03-23] MEDS: polyethylene glycoL POWDER 17 GM (MIRALAX) PACK PO SCH ×2 (08:38→20:18)
[2021-03-23] MEDS: guaiFENesin (MUCINEX) 600 MG TAB PO SCH ×2 (08:38→20:17)
[2021-03-23] MEDS: LOSARTAN 100 MG (COZAAR) TABLET PO SCH (08:38)
--- NOTE | 2021-03-23 12:27 | Progress Note - Surgery ---
Subjective Date Seen by a Provider: Mar 23, 2021 Time Seen by a Provider: 10:08 Subjective/Events-last exam More comfortable. Breathing slightly easier. No new complaints. Slept well last night. Denies n/v fever sweats chills or chest pain. Chest x ray without large volume pneumothorax left side. Focused Exam Lactate Level 03/20/21 12:45: Lactic Acid Level 2.05*H 03/20/21 19:15: Lactic Acid Level 1.25 Objective Exam Vital Signs Date Time Temp Pulse Resp B/P (MAP) Pulse Ox O2 Delivery O2 Flow Rate FiO2 03/23/21 12:00 105 26 101/59 91 Vapotherm 40.00 100.00 03/23/21 11:50 35.8 03/23/21 11:00 104 30 103/67 90 Vapotherm 40.00 100.00 03/23/21 10:48 90 Vapotherm 40.00 100 03/23/21 10:00 101 30 97/75 90 Vapotherm 40.00 100.00 03/23/21 09:00 98 30 94/62 89 Vapotherm 40.00 100.00 03/23/21 08:00 Vapotherm 40.00 100 03/23/21 08:00 36.2 92 28 97/62 90 Vapotherm 40.00 100.00 03/23/21 07:00 89 03/23/21 07:00 90 30 91/68 90 Vapotherm 40.00 100.00 03/23/21 06:00 81 24 92/65 91 Vapotherm 40.00 100.00 03/23/21 05:00 84 29 100/45 90 Vapotherm 40.00 100.00 03/23/21 04:00 36.4 03/23/21 04:00 78 25 104/78 92 Vapotherm 40.00 100.00 03/23/21 04:00 Vapotherm 40.00 100 03/23/21 03:00 80 25 89/57 93 Vapotherm 40.00 100.00 03/23/21 02:00 93 31 97/64 93 Vapotherm 40.00 100.00 03/23/21 01:42 93 Vapotherm 40.00 100 03/23/21 01:00 81 03/23/21 01:00 80 21 87/56 94 Vapotherm 40.00 100.00 03/23/21 00:00 79 18 94/55 96 Vapotherm 40.00 100.00 03/23/21 00:00 36.5 03/22/21 23:59 Vapotherm 40.00 100 03/22/21 23:00 86 24 87/58 94 Vapotherm 40.00 100.00 03/22/21 22:00 86 21 88/54 96 Vapotherm 40.00 100.00 03/22/21 21:09 93 Vapotherm 40.00 100 03/22/21 21:00 86 23 94/51 96 Vapotherm 40.00 100.00 03/22/21 20:47 36.0 03/22/21 20:00 Vapotherm 40.00 100 03/22/21 20:00 Vapotherm 40.00 100.00 03/22/21 20:00 100 36 108/66 94 Vapotherm 40.00 100.00 03/22/21 19:00 109 34 118/72 94 Vapotherm 40.00 100.00 03/22/21 19:00 110 03/22/21 18:00 100 31 98/57 92 Vapotherm 40.00 100.00 03/22/21 17:00 104 25 117/73 92 Vapotherm 40.00 100.00 03/22/21 16:43 36.4 03/22/21 16:00 Vapotherm 40.00 100 03/22/21 16:00 86 23 100/65 95 Vapotherm 40.00 100.00 03/22/21 15:02 95 Vapotherm 40.00 100 03/22/21 15:00 96 31 105/60 94 Vapotherm 40.00 100.00 03/22/21 14:00 105 28 97/68 96 Vapotherm 40.00 100.00 03/22/21 13:00 108 03/22/21 13:00 105 123/83 92 Vapotherm 40.00 100.00 I & O 03/23/21 07:00 Intake Total 1240 ml Output Total 2238 ml Balance -998 ml Capillary Refill : Less Than 3 Seconds General Appearance: Anxious, Obese HEENT: PERRL/EOMI, Normal ENT Inspection Neck: Non Tender, Supple Respiratory: Chest Non Tender, No Accessory Muscle Use, No Respiratory Distress, Other (no air leak) Cardiovascular: Regular Rate, Rhythm, No JVD Peripheral Pulses: 2+ Radial Pulses (R), 2+ Radial Pulses (L) Gastrointestinal: non tender, soft Extremity: Normal Inspection, Non Tender Neurologic/Psychiatric: Alert, Oriented x3 Skin: Normal Color, Warm/Dry Lymphatic: No Adenopathy (cervical or axillary) Results Lab Laboratory Tests 03/23/21 04:45: White Blood Count 17.6H, Red Blood Count 4.63, Hemoglobin 13.3, Hematocrit 41, Mean Corpuscular Volume 88, Mean Corpuscular Hemoglobin 29, Mean Corpuscular Hemoglobin Concent 33, Red Cell Distribution Width 13.5, Platelet Count 305, Mean Platelet Volume 9.3, Immature Granulocyte % (Auto) 1, Neutrophils (%) (Auto) 81H, Lymphocytes (%) (Auto) 9L, Monocytes (%) (Auto) 8, Eosinophils (%) (Auto) 1, Basophils (%) (Auto) 0, Neutrophils # (Auto) 14.3H, Lymphocytes # (Auto) 1.6, Monocytes # (Auto) 1.4H, Eosinophils # (Auto) 0.2, Basophils # (Auto ) 0.1, Immature Granulocyte # (Auto) 0.1, Sodium Level 136, Potassium Level 3.7, Chloride Level 102, Carbon Dioxide Level 21, Anion Gap 13, Blood Urea Nitrogen 13, Creatinine 0.65, Estimat Glomerular Filtration Rate 97, BUN/Creatinine Ratio 20, Glucose Level 95, Calcium Level 8.5, Corrected Calcium 9.1, Phosphorus Level 4.2, Magnesium Level 2.0, Total Bilirubin 0.9, Aspartate Amino Transf (AST/SGOT) 19, Alanine Aminotransferase (ALT/SGPT) 19, Alkaline Phosphatase 84, Total Protein 6.2L, Albumin 3.3 Microbiology 03/20/21 Urine Culture - Final, Complete NO GROWTH 03/20/21 Blood Culture - Preliminary, Resulted No growth 03/20/21 Gram Stain - Final, Complete 03/20/21 Sputum Culture - Final, Complete Usual upper respiratory hero Staphylococcus aureus Assessment/Plan Assessment/Plan Assessment/Plan Acute respiratory distress Left pneumothorax Covid pneumonia Plan: chest tube to suction repeat chest x ray in am no other changes at this time. CORNELIUS LEON DO Mar 23, 2021 12:27
[2021-03-23] MEDS: NS IV 1000 ML 1,000 ML IV SCH (12:44)
--- NOTE | 2021-03-23 13:06 | Tele-ICU Progress Note ---
Subjective Date Seen by a Provider: Mar 23, 2021 Time Seen by a Provider: 10:38 Sepsis Event Evaluation Height, Weight, BMI Height: '" Weight: lbs. oz. kg; 34.77 BMI Method: Focused Exam Lactate Level 03/20/21 19:15: Lactic Acid Level 1.25 Exam Exam Patient acknowledged, consented, and participated in this virtual visit which was conducted using real time audio/video Vital Signs Date Time Temp Pulse Resp B/P (MAP) Pulse Ox O2 Delivery O2 Flow Rate FiO2 03/23/21 12:52 104 03/23/21 12:00 105 26 101/59 91 Vapotherm 40.00 100.00 03/23/21 11:50 35.8 03/23/21 11:00 104 30 103/67 90 Vapotherm 40.00 100.00 03/23/21 10:48 90 Vapotherm 40.00 100 03/23/21 10:00 101 30 97/75 90 Vapotherm 40.00 100.00 03/23/21 09:00 98 30 94/62 89 Vapotherm 40.00 100.00 03/23/21 08:00 Vapotherm 40.00 100 03/23/21 08:00 36.2 92 28 97/62 90 Vapotherm 40.00 100.00 03/23/21 07:00 89 03/23/21 07:00 90 30 91/68 90 Vapotherm 40.00 100.00 03/23/21 06:00 81 24 92/65 91 Vapotherm 40.00 100.00 03/23/21 05:00 84 29 100/45 90 Vapotherm 40.00 100.00 03/23/21 04:00 36.4 03/23/21 04:00 78 25 104/78 92 Vapotherm 40.00 100.00 03/23/21 04:00 Vapotherm 40.00 100 03/23/21 03:00 80 25 89/57 93 Vapotherm 40.00 100.00 03/23/21 02:00 93 31 97/64 93 Vapotherm 40.00 100.00 03/23/21 01:42 93 Vapotherm 40.00 100 03/23/21 01:00 81 03/23/21 01:00 80 21 87/56 94 Vapotherm 40.00 100.00 03/23/21 00:00 79 18 94/55 96 Vapotherm 40.00 100.00 03/23/21 00:00 36.5 03/22/21 23:59 Vapotherm 40.00 100 03/22/21 23:00 86 24 87/58 94 Vapotherm 40.00 100.00 03/22/21 22:00 86 21 88/54 96 Vapotherm 40.00 100.00 03/22/21 21:09 93 Vapotherm 40.00 100 03/22/21 21:00 86 23 94/51 96 Vapotherm 40.00 100.00 03/22/21 20:47 36.0 03/22/21 20:00 Vapotherm 40.00 100 03/22/21 20:00 Vapotherm 40.00 100.00 03/22/21 20:00 100 36 108/66 94 Vapotherm 40.00 100.00 03/22/21 19:00 109 34 118/72 94 Vapotherm 40.00 100.00 03/22/21 19:00 110 03/22/21 18:00 100 31 98/57 92 Vapotherm 40.00 100.00 03/22/21 17:00 104 25 117/73 92 Vapotherm 40.00 100.00 03/22/21 16:43 36.4 03/22/21 16:00 Vapotherm 40.00 100 03/22/21 16:00 86 23 100/65 95 Vapotherm 40.00 100.00 03/22/21 15:02 95 Vapotherm 40.00 100 03/22/21 15:00 96 31 105/60 94 Vapotherm 40.00 100.00 03/22/21 14:00 105 28 97/68 96 Vapotherm 40.00 100.00 I & O 03/23/21 07:00 Intake Total 1240 ml Output Total 2238 ml Balance -998 ml Height & Weight Height: '" Weight: lbs. oz. kg; 34.77 BMI Method: General Appearance: Anxious, Obese HEENT: PERRL/EOMI, Normal ENT Inspection Neck: Non Tender, Supple Respiratory: Chest Non Tender, No Accessory Muscle Use, No Respiratory Distress, Other (no air leak) Cardiovascular: Regular Rate, Rhythm, No JVD Capillary Refill: Less Than 3 Seconds Peripheral Pulses: 2+ Radial Pulses (R), 2+ Radial Pulses (L) Gastrointestinal: non tender, soft Extremity: Normal Inspection, Non Tender Neurologic/Psychiatric: Alert, Oriented x3 Skin: Normal Color, Warm/Dry Lymphatic: No Adenopathy (cervical or axillary) Results Lab Laboratory Tests 03/22/21 05:30 03/23/21 04:45 Assessment/Plan Assessment/Plan Tele-ICU Physician , Progress Note ) Available chart/ vitals / labs / Images reviewed Video assessment done using teleICU camera, rest of exam as per RN Discussed with RN , EXAM PER RN Events overnight : Afebrile FiO2 - vt I/O = Drips: ns 70 Pressors: , hemodynamically stable Consultants: sx Hospital course: - admity with PTX left , post COVID 03/22 , new chest tube -- VT 40 L 100 % A/P PTX on LEFT - s/p [id number]/22 - changed to large chest tube `03/22 - small leak on suction 20 Acute resp failure - hypoxia , ARDS + suspected bact PNA ( no PE on CT 03/20 - VT 40 L 100 % - NRM on top s/p COVID 02/16/21 with chronic resp insufficiency ( home 2 L o2 - on IV steroids Suspected bact PNA = cefepime IV - follow Lines : (Central Line Necessity Reviewed) Jiang: OG: Nutrition: Analgesia: Anxiety/ delirium VTE Prophylaxis: lenin 40 Stress Ulcer Prophylaxis: po Plans in collaboration with bedside consultants and IM MDs. Discussed with RN to reach out if any questions or concerns A total of 31 minutes of critical care time was devoted to this patient today, required to treat and/or prevent further deterioration of critical care condition ( as above) . GAVIOTA CARUSO MD Mar 23, 2021 13:06
[2021-03-24] MEDS: morphine INJ 10 MG/ML 1ML (SYR OR VIAL) IVP PRN ×6 (00:31→21:43)
[2021-03-24] MEDS: ALPRAZolam 0.25 MG (XANAX) TAB PO PRN ×4 (04:00→21:43)
[2021-03-24] MEDS: NS IV 1000 ML 1,000 ML IV SCH ×2 (04:00→18:27)
[2021-03-24 05:04] LABS: BASOPHILS % (AUTO) 0 % (0-10); EOSINOPHILS # (AUTO) 0.2 10^3/uL (0.0-0.3); EOSINOPHILS % (AUTO) 1 % (0-10); HEMATOCRIT 42 % (35-52); HEMOGLOBIN 13.9 g/dL (11.5-16.0); LYMPHOCYTES # (AUTO) 1.7 10^3/uL (1.0-4.0); LYMPHOCYTES % (AUTO) 10 % (12-44); MEAN CORPUSCULAR HEMOGLOBIN 29 pg (25-34); MEAN CORPUSCULAR HGB CONC 33 g/dL (32-36); MEAN CORPUSCULAR VOLUME 88 fL (80-99); MEAN PLATELET VOLUME 9.5 fL (9.0-12.2); MONOCYTES # (AUTO) 1.4 10^3/uL (0.0-1.0); MONOCYTES % (AUTO) 8 % (0-12); NEUTROPHILS # (AUTO) 14.6 10^3/uL (1.8-7.8); NEUTROPHILS % (AUTO) 81 % (42-75); PLATELET COUNT 291 10^3/uL (130-400); WHITE BLOOD COUNT 18.1 10^3/uL (4.3-11.0)
[2021-03-24 05:28] LABS: ALBUMIN 3.4 GM/DL (3.2-4.5); POTASSIUM 3.5 MMOL/L (3.6-5.0)
[2021-03-24 05:29] LABS: CALCIUM 8.5 MG/DL (8.5-10.1)
[2021-03-24 05:31] LABS: TOTAL PROTEIN 6.3 GM/DL (6.4-8.2)
[2021-03-24 05:32] LABS: BILIRUBIN,TOTAL 0.9 MG/DL (0.1-1.0)
[2021-03-24 05:34] LABS: CREATININE SERUM 0.74 MG/DL (0.60-1.30); PHOSPHORUS 4.1 MG/DL (2.3-4.7)
[2021-03-24] MEDS: POTASSIUM CL 10MEQ/50ML IVPB 50 ML IV SCH (05:43)
[2021-03-24] MEDS: KCL 20 MEQ TAB (K-DUR) PO SCH (05:43)
[2021-03-24] MEDS: MAGNESIUM 1 GM/100 ML IVPB 100 ML IV SCH (05:43)
--- NOTE | 2021-03-24 07:02 | Progress Note - Hospitalist ---
Subjective HPI/CC On Admission Date Seen by Provider: Mar 24, 2021 Time Seen by Provider: 11:45 CC: SOB HPI: This is a 51-year-old [facility] female patient who presents with SOB the past three days, worsened since she had Covid. She was found to have a pneumothorax on the left side of 50%, a Pleuradex catheter was placed by Dr. Fisher and she will no longer need isolation but will need ICU due to requirement of max vapotherm at 40 liters and 100% and WBC of 26,000, in need of close monitoring due to high risk for decompensation. Subjective/Events-last exam Patient currently on BiPAP Increasing Xanax to help her tolerate the mask Chest tube appears to be in place Patient remains in intubation risk Discontinue Decadron Review of Systems General: Fatigue, Malaise Pulmonary: Dyspnea Focused Exam Lactate Level 03/25/21 04:37: Lactic Acid Level 1.62 Lactic Acid Level Laboratory Tests Test 03/25/21 04:37 Lactic Acid Level 1.62 MMOL/L (0.50-2.00) Objective Exam Vital Signs Vital Signs Date Time Temp Pulse Resp B/P (MAP) Pulse Ox O2 Delivery O2 Flow Rate FiO2 03/25/21 03:40 NIV Bilevel 100 03/25/21 01:25 101 32 83 100.00 03/25/21 01:03 124/61 03/24/21 19:57 36.6 Capillary Refill : Less Than 3 Seconds General Appearance: Anxious, Chronically ill, Mild Distress Respiratory: No Accessory Muscle Use, No Respiratory Distress, Decreased Breath Sounds Cardiovascular: Regular Rate, Rhythm Neurologic/Psychiatric: Alert, Oriented x3 Results/Procedures Lab Laboratory Tests 03/25/21 04:28 Patient resulted labs reviewed. Assessment/Plan Assessment and Plan Assess & Plan/Chief Complaint Assessment: Acute hypoxic respiratory failure Left-sided pneumothorax Thora vent discontinued after arriving in the ICU placed chest tube 03/22/[address] Fisher Post Covid syndrome Anxiety Depression Hypertension Leukocytosis Plan: Vapotherm Pneumothorax management per Dr. Fisher Allgood meds 03/21/2021: Supportive care Max Vapotherm 03/22/2021: Chest tube placement 03/23/2021: Appreciate Dr. Fisher eICU Maxed on Vapotherm 03/24/2021: Maintain BiPAP Chest tube management per Dr. Fisher Critical Care Critically Ill Patient Diagnosis/Problems Diagnosis/Problems (1) Pneumonia due to COVID-19 virus Status: Acute (2) Pneumothorax on left Status: Acute (3) Hypoxia Status: Acute JAMES CRAIG DO Mar 24, 2021 07:02
[2021-03-24] MEDS: SENNA W/DOCUSATE (SENOKOT S) TABLET PO SCH ×2 (07:57→20:13)
[2021-03-24] MEDS: polyethylene glycoL POWDER 17 GM (MIRALAX) PACK PO SCH ×2 (07:57→20:12)
[2021-03-24] MEDS: guaiFENesin (MUCINEX) 600 MG TAB PO SCH ×2 (08:12→19:55)
[2021-03-24] MEDS: ENOXAPARIN 40 MG/0.4 ML (LOVENOX) SYR SC SCH (08:12)
[2021-03-24] MEDS: LOSARTAN 100 MG (COZAAR) TABLET PO SCH (08:12)
--- NOTE | 2021-03-24 08:13 | Progress Note - Surgery ---
PALMABUDDYELVIS NELSON 03/24/21 0813: Subjective Date Seen by a Provider: Mar 24, 2021 Time Seen by a Provider: 07:02 Subjective/Events-last exam PT sitting up in bed and breathing without distress. She is currently on vapotherm 40/100 and NRB 15L with sats in low 90's. Lung sounds are present in all areas, however there are also crackles and diminished sounds in the bases. Chest tube remains on suction, with bubbles when coughing and producing 305mls of serious sanguinous fluid as of this am. Review of Systems General: No Chills, No Night Sweats; Fatigue, Appetite HEENT: No Head Aches, No Eye Pain, No Dysphasia Pulmonary: Dyspnea, Cough; No Pleuritic Chest Pain Cardiovascular: No: Chest Pain, Palpitations, Orthopnea, Paroxysmal Noc. Dyspnea, Edema Gastrointestinal: No: Nausea, Vomiting, Abdominal Pain, Diarrhea, Constipation Genitourinary: No Dysuria, No Frequency, No Incontinence Musculoskeletal: shoulder pain (Complains of pain in left shoulder area - likely due to chest tube placement); No: neck pain, back pain, hand pain Neurological: No: Weakness, Numbness, Confusion Objective Exam Vital Signs Date Time Temp Pulse Resp B/P (MAP) Pulse Ox O2 Delivery O2 Flow Rate FiO2 03/24/21 08:01 87 Vapotherm 40.00 100 03/24/21 07:45 36.5 03/24/21 07:00 92 03/24/21 07:00 89 30 100/64 89 Vapotherm 40.00 Non Rebreather 15.00 100.00 03/24/21 06:00 94 26 93/65 90 Vapotherm 40.00 Non Rebreather 15.00 100.00 03/24/21 05:00 85 25 102/62 90 Vapotherm 40.00 Non Rebreather 15.00 100.00 03/24/21 04:00 Vapotherm 40.00 100 03/24/21 04:00 92 21 134/85 92 Vapotherm 40.00 Non Rebreather 15.00 100.00 03/24/21 03:00 90 33 93/60 92 Vapotherm 40.00 Non Rebreather 15.00 100.00 03/24/21 02:00 85 21 96/60 93 Vapotherm 40.00 Non Rebreather 15.00 100.00 03/24/21 01:00 84 03/24/21 01:00 84 29 90/60 93 Vapotherm 40.00 Non Rebreather 15.00 100.00 03/24/21 00:39 36.5 03/24/21 00:00 Vapotherm 40.00 100 03/24/21 00:00 82 19 89/60 93 Vapotherm 40.00 Non Rebreather 15.00 100.00 03/23/21 23:00 89 31 91/64 94 Vapotherm 40.00 Non Rebreather 15.00 100.00 03/23/21 22:29 94 Vapotherm 40.00 100 03/23/21 22:00 88 29 97/61 95 Vapotherm 40.00 Non Rebreather 15.00 100.00 03/23/21 21:00 90 30 99/67 93 Vapotherm 40.00 Non Rebreather 15.00 100.00 03/23/21 20:00 Vapotherm 40.00 100 03/23/21 20:00 103 35 103/63 93 Vapotherm 40.00 Non Rebreather 15.00 100.00 03/23/21 19:55 36.4 03/23/21 19:10 91 Vapotherm 40.00 100 03/23/21 19:00 100 26 106/63 94 Vapotherm 40.00 Non Rebreather 15.00 100.00 03/23/21 19:00 Vapotherm 40.00 Non Rebreather 15.00 100.00 03/23/21 19:00 104 03/23/21 18:00 99 28 98/70 94 Vapotherm 40.00 100.00 03/23/21 17:00 96 31 86/69 93 Vapotherm 40.00 100.00 03/23/21 16:00 Vapotherm 40.00 100 03/23/21 16:00 98 35 98/70 94 Vapotherm 40.00 100.00 03/23/21 15:59 36.2 03/23/21 15:00 100 30 100/64 93 Vapotherm 40.00 100.00 03/23/21 14:00 97 30 98/68 92 Vapotherm 40.00 100.00 03/23/21 13:00 106 28 105/62 91 Vapotherm 40.00 100.00 03/23/21 12:52 104 03/23/21 12:00 105 26 101/59 91 Vapotherm 40.00 100.00 03/23/21 12:00 Vapotherm 40.00 100 03/23/21 11:50 35.8 03/23/21 11:00 104 30 103/67 90 Vapotherm 40.00 100.00 03/23/21 10:48 90 Vapotherm 40.00 100 03/23/21 10:00 101 30 97/75 90 Vapotherm 40.00 100.00 03/23/21 09:00 98 30 94/62 89 Vapotherm 40.00 100.00 I & O 03/24/21 06:59 Intake Total 2460 ml Output Total 1845 ml Balance 615 ml Capillary Refill : Less Than 3 Seconds General Appearance: No Apparent Distress, WD/WN, Anxious, Chronically ill HEENT: PERRL/EOMI, Normal ENT Inspection Neck: Full Range of Motion, Non Tender, Supple Respiratory: Chest Non Tender, No Accessory Muscle Use, No Respiratory Distress, Crackles, Decreased Breath Sounds, Inspiration Cardiovascular: Regular Rate, Rhythm, No Edema, No Gallop, No Murmur, Normal Peripheral Pulses Peripheral Pulses: 2+ Radial Pulses (R), 2+ Radial Pulses (L) Gastrointestinal: normal bowel sounds, non tender, soft, no organomegaly Extremity: Normal Capillary Refill, Normal Range of Motion, Non Tender, No Calf Tenderness, No Pedal Edema Neurologic/Psychiatric: Alert, Oriented x3, No Motor/Sensory Deficits, Normal Mood/Affect Skin: Normal Color, Warm/Dry Lymphatic: No Adenopathy (cervical or axillary) Results Lab Laboratory Tests 03/24/21 04:20: White Blood Count 18.1H, Red Blood Count 4.79, Hemoglobin 13.9, Hematocrit 42, Mean Corpuscular Volume 88, Mean Corpuscular Hemoglobin 29, Mean Corpuscular Hemoglobin Concent 33, Red Cell Distribution Width 13.3, Platelet Count 291, Mean Platelet Volume 9.5, Immature Granulocyte % (Auto) 1, Neutrophils (%) (Auto) 81H, Lymphocytes (%) (Auto) 10L, Monocytes (%) (Auto) 8, Eosinophils (%) (Auto) 1, Basophils (%) (Auto) 0, Neutrophils # (Auto) 14.6H, Lymphocytes # (Auto) 1.7, Monocytes # (Auto) 1.4H, Eosinophils # (Auto) 0.2, Basophils # (Auto) 0.0, Immature Granulocyte # (Auto) 0.1, Sodium Level 137, Potassium Level 3.5L, Chloride Level 100, Carbon Dioxide Level 24, Anion Gap 13, Blood Urea Nitrogen 14, Creatinine 0.74, Estimat Glomerular Filtration Rate 83, BUN/Creatinine Ratio 19, Glucose Level 91, Calcium Level 8.5, Corrected Calcium 9.0, Phosphorus Level 4.1, Magnesium Level 2.0, Total Bilirubin 0.9, Aspartate Amino Transf (AST/SGOT) 15, Alanine Aminotransferase (ALT/SGPT) 19, Alkaline Phosphatase 90, Total Protein 6.3L, Albumin 3.4 Microbiology 03/20/21 Urine Culture - Final, Complete NO GROWTH 03/20/21 Blood Culture - Preliminary, Resulted No growth 03/20/21 Gram Stain - Final, Complete 03/20/21 Sputum Culture - Final, Complete Usual upper respiratory hero Staphylococcus aureus Assessment/Plan Assessment/Plan Assessment/Plan Acute respiratory distress Left pneumothorax Covid pneumonia Plan: chest tube to suction CXR today - no PNX - severe 5 lobe airspace disease with mild improvement Continue intensive care - lungs are fully expanded as per CXR, and pt has good chest rise, lung tissue is badly damaged secondary to COVID PNA which inhibits adequate oxygenation - explained to pt that this will take time to improve. no other changes at this time. CORNELIUS FISHER DO 03/24/21 1157: Subjective Subjective/Events-last exam Patient little bit of difficulty breathing this morning was placed on BiPAP. Patient doing well currently. Patient breathing much easier. Patient has no new complaints at this time. Denies nausea vomiting fever sweats chills or chest pain. Chest tube with small air leak. Repeat chest x-ray demonstrating expansion of the lungs with improvement of interstitial disease with no appreciable pneumothorax present. Objective Exam General Appearance: No Apparent Distress, Anxious HEENT: PERRL/EOMI, Normal ENT Inspection Neck: Full Range of Motion, Non Tender, Supple Respiratory: Chest Non Tender, No Accessory Muscle Use, Crackles, Decreased Breath Sounds Cardiovascular: Regular Rate, Rhythm, No JVD Gastrointestinal: non tender, soft Extremity: Normal Capillary Refill, Non Tender, No Calf Tenderness Neurologic/Psychiatric: Alert, Oriented x3, No Motor/Sensory Deficits Skin: Normal Color, Warm/Dry Lymphatic: No Adenopathy (cervical or axillary) Assessment/Plan Assessment/Plan Assessment/Plan Acute respiratory distress Left pneumothorax Covid pneumonia Plan: chest tube to suction CXR today - no PNX - severe 5 lobe airspace disease with mild improvement Continue intensive care - lungs are fully expanded as per CXR, and pt has good chest rise, lung tissue is badly damaged secondary to COVID PNA which inhibits adequate oxygenation - explained to pt that this will take time to improve. no other changes at this time. Supervisory-Addendum Brief Verification & Attestation Participated in pt care: history, MDM, physical Personally performed: exam, history, MDM, supervision of care Care discussed with: Medical Student Procedures: n/a Results interpretation: Verified all documentation Verification and Attestation of Medical Student E/M Service A medical student performed and documented this service in my presence. I reviewed and verified all information documented by the medical student and made modifications to such information, when appropriate. I personally performed the physical exam and medical decision making. Cornelius Fisher, Mar 24, 2021,11:57 ELVIS STEVENSON Mar 24, 2021 08:13 CORNELIUS FISHER DO Mar 24, 2021 11:57
--- NOTE | 2021-03-24 08:23 | Diagnostic Imaging Report ---
Indication: Pneumonia. Compared with study of 03/23. Findings: Extensive 5 lobe infiltrates are present, severity of the disease while substantial has mildly improved in the interim. No appreciable pneumothorax or soft tissue gas on followup. No free air beneath the diaphragms. Impression: While severe 5 lobe airspace disease is present, it is at least mildly improved in the interim with no adverse change. Dictated by: Dictated on workstation # [id number]
[2021-03-24 08:38] VITALS: BP 120/71
[2021-03-24] MEDS ORDERED: KCL 20 MEQ TAB (K-DUR) PO ONE (09:00)
--- NOTE | 2021-03-24 09:57 | Tele-ICU Progress Note ---
Subjective Date Seen by a Provider: Mar 24, 2021 Time Seen by a Provider: 09:56 Sepsis Event Evaluation Height, Weight, BMI Height: '" Weight: lbs. oz. kg; 34.77 BMI Method: Exam Exam Patient acknowledged, consented, and participated in this virtual visit which was conducted using real time audio/video Vital Signs Date Time Temp Pulse Resp B/P (MAP) Pulse Ox O2 Delivery O2 Flow Rate FiO2 03/24/21 09:00 97 31 109/64 95 NIV Bilevel 100.00 03/24/21 08:38 96 27 92 100.00 03/24/21 08:30 NIV Bilevel 100.00 03/24/21 08:01 87 Vapotherm 40.00 100 03/24/21 08:00 101 35 120/71 86 Vapotherm 40.00 Non Rebreather 15.00 100.00 03/24/21 08:00 Vapotherm 40.00 100 03/24/21 07:45 36.5 03/24/21 07:00 92 03/24/21 07:00 89 30 100/64 89 Vapotherm 40.00 Non Rebreather 15.00 100.00 03/24/21 06:00 94 26 93/65 90 Vapotherm 40.00 Non Rebreather 15.00 100.00 03/24/21 05:00 85 25 102/62 90 Vapotherm 40.00 Non Rebreather 15.00 100.00 03/24/21 04:00 Vapotherm 40.00 100 03/24/21 04:00 92 21 134/85 92 Vapotherm 40.00 Non Rebreather 15.00 100.00 03/24/21 03:00 90 33 93/60 92 Vapotherm 40.00 Non Rebreather 15.00 100.00 03/24/21 02:00 85 21 96/60 93 Vapotherm 40.00 Non Rebreather 15.00 100.00 03/24/21 01:00 84 03/24/21 01:00 84 29 90/60 93 Vapotherm 40.00 Non Rebreather 15.00 100.00 03/24/21 00:39 36.5 03/24/21 00:00 Vapotherm 40.00 100 03/24/21 00:00 82 19 89/60 93 Vapotherm 40.00 Non Rebreather 15.00 100.00 03/23/21 23:00 89 31 91/64 94 Vapotherm 40.00 Non Rebreather 15.00 100.00 03/23/21 22:29 94 Vapotherm 40.00 100 03/23/21 22:00 88 29 97/61 95 Vapotherm 40.00 Non Rebreather 15.00 100.00 03/23/21 21:00 90 30 99/67 93 Vapotherm 40.00 Non Rebreather 15.00 100.00 03/23/21 20:00 Vapotherm 40.00 100 03/23/21 20:00 103 35 103/63 93 Vapotherm 40.00 Non Rebreather 15.00 100.00 03/23/21 19:55 36.4 03/23/21 19:10 91 Vapotherm 40.00 100 03/23/21 19:00 100 26 106/63 94 Vapotherm 40.00 Non Rebreather 15.00 100.00 03/23/21 19:00 Vapotherm 40.00 Non Rebreather 15.00 100.00 03/23/21 19:00 104 03/23/21 18:00 99 28 98/70 94 Vapotherm 40.00 100.00 03/23/21 17:00 96 31 86/69 93 Vapotherm 40.00 100.00 03/23/21 16:00 Vapotherm 40.00 100 03/23/21 16:00 98 35 98/70 94 Vapotherm 40.00 100.00 03/23/21 15:59 36.2 03/23/21 15:00 100 30 100/64 93 Vapotherm 40.00 100.00 03/23/21 14:00 97 30 98/68 92 Vapotherm 40.00 100.00 03/23/21 13:00 106 28 105/62 91 Vapotherm 40.00 100.00 03/23/21 12:52 104 03/23/21 12:00 105 26 101/59 91 Vapotherm 40.00 100.00 03/23/21 12:00 Vapotherm 40.00 100 03/23/21 11:50 35.8 03/23/21 11:00 104 30 103/67 90 Vapotherm 40.00 100.00 03/23/21 10:48 90 Vapotherm 40.00 100 03/23/21 10:00 101 30 97/75 90 Vapotherm 40.00 100.00 I & O 03/24/21 07:00 Intake Total 2460 ml Output Total 1845 ml Balance 615 ml Height & Weight Height: '" Weight: lbs. oz. kg; 34.77 BMI Method: General Appearance: No Apparent Distress, WD/WN, Anxious, Chronically ill HEENT: PERRL/EOMI, Normal ENT Inspection Neck: Full Range of Motion, Non Tender, Supple Respiratory: Chest Non Tender, No Accessory Muscle Use, No Respiratory Distress, Crackles, Decreased Breath Sounds, Inspiration Cardiovascular: Regular Rate, Rhythm, No Edema, No Gallop, No Murmur, Normal Peripheral Pulses Capillary Refill: Less Than 3 Seconds Peripheral Pulses: 2+ Radial Pulses (R), 2+ Radial Pulses (L) Gastrointestinal: normal bowel sounds, non tender, soft, no organomegaly Extremity: Normal Capillary Refill, Normal Range of Motion, Non Tender, No Calf Tenderness, No Pedal Edema Neurologic/Psychiatric: Alert, Oriented x3, No Motor/Sensory Deficits, Normal Mood/Affect Skin: Normal Color, Warm/Dry Lymphatic: No Adenopathy (cervical or axillary) Results Lab Laboratory Tests 03/23/21 04:45 03/24/21 04:20 Assessment/Plan Assessment/Plan (Tele-ICU Physician , Progress Note ) Available chart/ vitals / labs / Images reviewed Video assessment done using teleICU camera, rest of exam as per RN Discussed with RN , EXAM PER RN Events overnight : Afebrile FiO2 - vt I/O = Drips: ns 70 Pressors: , hemodynamically stable Consultants: sx Hospital course: - admity with PTX left , post COVID 03/22 , new chest tube -- VT 40 L 100 % 03/24 - vt 40 l 100% ,-->bipap 15/8 100 % rr 32 tv 600 MV 25L A/P PTX on LEFT - s/p [id number]/22 - changed to large chest tube 03/22 - no leak on suction , LUNG EXPANDED - PER sX Acute resp failure - hypoxia , ARDS + suspected bact PNA ( no PE on CT 03/20 - VT 40 L 100 % - NRM on top , alternates with bipap 15/8 100 % rr 32 tv 600 MV 25L s/p COVID 02/16/21 with chronic resp insufficiency ( home 2 L o2 - on IV steroids - too late to tx inflammatory phase , cont id wheezign - as per PCP bedside assessment Suspected bact PNA = cefepime IV - follow Lines : (Central Line Necessity Reviewed) Jiang: 03/22 OG: Nutrition: minimal Analgesia: Anxiety/ delirium VTE Prophylaxis: lenin 40 Stress Ulcer Prophylaxis: po Plans in collaboration with bedside consultants and IM MDs. Discussed with RN to reach out if any questions or concerns A total of 31 minutes of critical care time was devoted to this patient today, required to treat and/or prevent further deterioration of critical care condition ( as above) . GAVIOTA CARUSO MD Mar 24, 2021 09:56
[2021-03-24 11:09] VITALS: BP 120/71
[2021-03-24 18:53] VITALS: BP 104/66
[2021-03-24 19:27] VITALS: BP 101/64
[2021-03-24] MEDS: RT-ALBUTEROL HFA 8.5 GM INHALER IH PRN (19:27)
[2021-03-24] MEDS: HYDROcodone/APAP 5 MG/325 MG (LORTAB) TAB PO PRN (19:58)
[2021-03-24 22:25] VITALS: BP 95/68
[2021-03-25] MEDS: morphine INJ 10 MG/ML 1ML (SYR OR VIAL) IVP PRN (00:03)
[2021-03-25] MEDS: RT-ALBUTEROL HFA 8.5 GM INHALER IH PRN (00:39)
[2021-03-25 00:41] VITALS: BP 124/81
[2021-03-25 00:42] VITALS: BP 124/61
[2021-03-25] MEDS: ALPRAZolam 0.25 MG (XANAX) TAB PO PRN (00:47)
[2021-03-25] MEDS ORDERED: DexMEDEtomidine 250 ML DRIP 250 ML IV ONE (00:54)
[2021-03-25] MEDS: DexMEDEtomidine 250 ML DRIP 250 ML IV SCH ×2 (01:03→08:34)
[2021-03-25] MEDS ORDERED: RT-ALBUTEROL/IPRATROPIUM 3 ML (DUONEB) VIAL INH SCH ×2 (01:15→09:00)
[2021-03-25] MEDS ORDERED: RT-ALBUTEROL/IPRATROPIUM 3 ML (DUONEB) VIAL ONE (01:20)
[2021-03-25 01:25] VITALS: BP 124/61
[2021-03-25 02:09] LABS: ABG BASE EXCESS 0.6 MMOL/L (-2.5-2.5); ABG OXYGEN SATURATION 84 % (94-100); ABG PCO2 39 MMHG (35-45); ABG PH 7.42 (7.37-7.43); ABG PO2 52 MMHG (79-93); ABG TCO2 26.1 MMOL/L (21.0-31.0)
[2021-03-25 02:11] LABS: ALLENS TEST YES-POS; INSPIRED O2 100%; PATIENT TEMP 36.1; VENTILATOR NO
[2021-03-25] MEDS ORDERED: LORazepam INJ 2 MG/ML (ATIVAN) VIAL ONE (02:27)
[2021-03-25] MEDS ORDERED: LORazepam INJ 2 MG/ML (ATIVAN) VIAL IVP ONE (02:30)
--- NOTE | 2021-03-25 02:50 | Tele-ICU Progress Note ---
Progress Note TeleICU Called by bedside nursing because pt has been desaturating on current BiPAP settings She is anxious but is able to speak on the BiPAP and nursing says not responsive to Xanax 0.25 mg q. 3 hours.PO On BiPAP 15/8 - 100% rate 14, own rate 33 TV upper 700s 03/24 AM CXR: Radiology reading Compared with study of 03/23. Findings: Extensive 5 lobe infiltrates are present, severity of the disease while substantial has mildly improved in the interim. No appreciable pneumothorax or soft tissue gas on followup. No ree air beneath the diaphragms. Impression: While severe 5 lobe airspace disease is present, it is at least mildly improved in the interim with no adverse change. I ordered a CXR , changed inhaler to in line nebulizer. CXR shows same lucency L upper chest as seen on 03/24 AM- local barotrauma suspected. She still has L chest tube and no air leak per nursing. RT had reduced the BiPAP from 20/14 to 15/8 sats dropped as low as 82% , was 84% when ABGs drawn and now at 86-87%. I increased the EPAP to 10 - BiPAP now 15/10-100% rate 14 and pt is saturating at 88%. Will keep pt NPO, use nebs instead of inhaler, obtain AM CXR as already ordered. Focused Exam Height, Weight, BMI Height: '" Weight: lbs. oz. kg; 34.77 BMI Method: CRUZ VELAZCO DO Mar 25, 2021 02:49
[2021-03-25 04:38] LABS: BASOPHILS # (AUTO) 0.1 10^3/uL (0.0-0.1); BASOPHILS % (AUTO) 0 % (0-10); EOSINOPHILS # (AUTO) 0.1 10^3/uL (0.0-0.3); EOSINOPHILS % (AUTO) 0 % (0-10); HEMATOCRIT 41 % (35-52); HEMOGLOBIN 13.6 g/dL (11.5-16.0); LYMPHOCYTES # (AUTO) 0.9 10^3/uL (1.0-4.0); LYMPHOCYTES % (AUTO) 3 % (12-44); MEAN CORPUSCULAR HEMOGLOBIN 29 pg (25-34); MEAN CORPUSCULAR HGB CONC 33 g/dL (32-36); MEAN CORPUSCULAR VOLUME 88 fL (80-99); MONOCYTES # (AUTO) 1.9 10^3/uL (0.0-1.0); MONOCYTES % (AUTO) 7 % (0-12); NEUTROPHILS # (AUTO) 25.5 10^3/uL (1.8-7.8); NEUTROPHILS % (AUTO) 89 % (42-75); PLATELET COUNT 266 10^3/uL (130-400); WHITE BLOOD COUNT 28.7 10^3/uL (4.3-11.0)
[2021-03-25 04:53] LABS: ALBUMIN 3.3 GM/DL (3.2-4.5); POTASSIUM 4.2 MMOL/L (3.6-5.0)
[2021-03-25 04:54] LABS: CALCIUM 8.7 MG/DL (8.5-10.1)
[2021-03-25 04:55] LABS: TOTAL PROTEIN 6.3 GM/DL (6.4-8.2)
[2021-03-25 04:57] LABS: BILIRUBIN,TOTAL 1.1 MG/DL (0.1-1.0)
[2021-03-25 04:59] LABS: CREATININE SERUM 1.07 MG/DL (0.60-1.30); PHOSPHORUS 5.3 MG/DL (2.3-4.7)
[2021-03-25 05:02] LABS: MAGNESIUM 1.9 MG/DL (1.6-2.4)
[2021-03-25 05:12] LABS: ABG BASE EXCESS 1.9 MMOL/L (-2.5-2.5); ABG OXYGEN SATURATION 85 % (94-100); ABG PCO2 37 MMHG (35-45); ABG PH 7.45 (7.37-7.43); ABG PO2 54 MMHG (79-93); ABG TCO2 26.9 MMOL/L (21.0-31.0)
[2021-03-25] MEDS: MAGNESIUM 1 GM/100 ML IVPB 100 ML IV SCH (05:12)
[2021-03-25] MEDS: POTASSIUM CL 10MEQ/50ML IVPB 50 ML IV SCH (05:12)
[2021-03-25] MEDS: KCL 20 MEQ TAB (K-DUR) PO SCH (05:13)
[2021-03-25 05:15] LABS: ALLENS TEST YES-POS; INSPIRED O2 100%; PATIENT TEMP 36.1; VENTILATOR NO
--- NOTE | 2021-03-25 06:17 | Diagnostic Imaging Report ---
EXAM: CHEST 1 VIEW, AP/PA ONLY INDICATION: Pneumothorax. COMPARISON: 03/24/2021. FINDINGS: Persistent airspace opacities throughout both lungs. Small left apical pneumothorax measures up to 9 mm left lung apex. Normal heart size. No pleural effusion. No acute osseous findings. IMPRESSION: 1. Small left apical pneumothorax is new since the prior. 2. Persistent dense airspace opacities throughout both lungs. Dictated by: Dictated on workstation # [id number]
[2021-03-25 06:35] VITALS: BP 96/55
--- NOTE | 2021-03-25 06:48 | Diagnostic Imaging Report ---
EXAM: CHEST 1 VIEW, AP/PA ONLY INDICATION: Shortness of air. Pneumothorax. COMPARISON: 03/25/2021 at 1:11 AM. FINDINGS: Persistent left apical pneumothorax measures approximately 0.5 cm. Dense airspace opacities throughout both lungs. Normal heart size. Pulmonary vascularity is obscured. No large pleural effusion is seen. No acute osseous findings. IMPRESSION: 1. Small left apical pneumothorax now measures 0.5 cm, previously 0.9. 2. Persistent dense airspace opacities throughout both lungs. Dictated by: Dictated on workstation # [id number]
--- NOTE | 2021-03-25 07:44 | Progress Note - Surgery ---
ELVIS STEVENSON 03/25/21 0744: Subjective Date Seen by a Provider: Mar 25, 2021 Time Seen by a Provider: 07:09 Subjective/Events-last exam Pt is having more difficulty breathing, is on BI-pap. Chest tube in place produced 500ml total output of serous sanginous fluid. Some bubble still present when pt coughs CXR indicates small left apical PNX (<1CM) Review of Systems General: No Chills, No Night Sweats; Fatigue HEENT: No Head Aches, No Eye Pain, No Ear Pain Pulmonary: Dyspnea, Cough; No Pleuritic Chest Pain Cardiovascular: No: Chest Pain, Palpitations, Orthopnea, Paroxysmal Noc. Dyspnea Gastrointestinal: No: Nausea, Vomiting, Abdominal Pain Genitourinary: No Dysuria, No Frequency Musculoskeletal: No: neck pain, shoulder pain, back pain Neurological: No: Weakness, Numbness, Confusion, Seizures Focused Exam Lactate Level 03/25/21 04:37: Lactic Acid Level 1.62 Lactic Acid Level Laboratory Tests Test 03/25/21 04:37 Lactic Acid Level 1.62 MMOL/L (0.50-2.00) Objective Exam Vital Signs Date Time Temp Pulse Resp B/P (MAP) Pulse Ox O2 Delivery O2 Flow Rate FiO2 03/25/21 07:20 37.2 03/25/21 06:35 85 34 91 100.00 03/25/21 06:00 89 33 98/24 87 NIV Bilevel 100.00 03/25/21 05:00 91 30 75/48 76 NIV Bilevel 100.00 03/25/21 04:00 88 28 75/48 91 NIV Bilevel 100.00 03/25/21 03:40 NIV Bilevel 100 03/25/21 03:00 96 39 77/33 86 NIV Bilevel 100.00 03/25/21 02:00 104 35 91/50 89 NIV Bilevel 100.00 03/25/21 01:25 101 32 83 100.00 03/25/21 01:03 124/61 03/25/21 01:00 107 03/25/21 01:00 107 31 124/61 80 NIV Bilevel 100.00 03/25/21 00:42 105 35 81 100.00 03/25/21 00:41 105 30 86 100.00 03/25/21 00:00 110 29 124/81 87 NIV Bilevel 100.00 03/24/21 23:37 NIV Bilevel 100 03/24/21 23:00 95 28 95/56 93 NIV Bilevel 100.00 03/24/21 22:25 94 26 93 100.00 03/24/21 22:00 96 29 95/68 92 NIV Bilevel 100.00 03/24/21 21:00 89 23 89/58 92 NIV Bilevel 100.00 03/24/21 20:10 NIV Bilevel 100 03/24/21 20:00 99 24 115/67 97 NIV Bilevel 100.00 03/24/21 19:57 36.6 03/24/21 19:53 92 35 101/64 95 NIV Bilevel 100.00 03/24/21 19:27 98 35 93 100.00 03/24/21 19:00 92 03/24/21 19:00 92 32 101/64 100 NIV Bilevel 100.00 03/24/21 18:53 93 32 100 100.00 03/24/21 18:00 89 31 104/66 96 NIV Bilevel 100.00 03/24/21 17:00 85 30 89/62 98 NIV Bilevel 100.00 03/24/21 16:00 NIV Bilevel 100 03/24/21 16:00 96 31 99/56 96 NIV Bilevel 100.00 03/24/21 15:49 36.3 03/24/21 15:00 92 34 101/69 100 NIV Bilevel 100.00 03/24/21 14:00 95 34 101/71 99 NIV Bilevel 100.00 03/24/21 13:00 90 32 105/67 100 NIV Bilevel 100.00 03/24/21 12:55 95 03/24/21 12:00 NIV Bilevel 100 03/24/21 12:00 35.9 03/24/21 12:00 98 36 96/65 94 NIV Bilevel 100.00 03/24/21 11:09 96 27 92 100.00 03/24/21 11:00 95 29 109/66 97 NIV Bilevel 100.00 03/24/21 10:00 97 35 111/61 95 NIV Bilevel 100.00 03/24/21 09:00 97 31 109/64 95 NIV Bilevel 100.00 03/24/21 08:38 96 27 92 100.00 03/24/21 08:30 NIV Bilevel 100.00 03/24/21 08:01 87 Vapotherm 40.00 100 03/24/21 08:00 101 35 120/71 86 Vapotherm 40.00 Non Rebreather 15.00 100.00 03/24/21 08:00 Vapotherm 40.00 100 03/24/21 07:45 36.5 I & O 03/25/21 07:00 Intake Total 1390 ml Output Total 1630 ml Balance -240 ml Capillary Refill : Less Than 3 Seconds General Appearance: WD/WN, Anxious, Chronically ill, Mild Distress HEENT: PERRL/EOMI Neck: Full Range of Motion, Non Tender, Supple Respiratory: Chest Non Tender, No Accessory Muscle Use, Decreased Breath Sounds (right is more diminished than left), Pleural Rub ([place] in left upper lobe area) Cardiovascular: No Edema, No Gallop, No Murmur, Normal Peripheral Pulses, Tachycardia Peripheral Pulses: 2+ Radial Pulses (R), 2+ Radial Pulses (L) Gastrointestinal: non tender, soft, no organomegaly Extremity: Normal Capillary Refill, Normal Range of Motion, Non Tender, No Calf Tenderness, No Pedal Edema Neurologic/Psychiatric: Alert, Oriented x3, No Motor/Sensory Deficits, fixed income trading vice president II- XII Norm as Tested Skin: Normal Color, Warm/Dry Lymphatic: No Adenopathy (cervical or axillary) Results Lab Laboratory Tests 03/25/21 01:55: Blood Gas Puncture Site RIGHT RADIAL, Blood Gas Patient Temperature 36.1, Arterial Blood pH 7.42, Arterial Blood Partial Pressure CO2 39, Arterial Blood Partial Pressure O2 52L, Arterial Blood HCO3 25, Arterial Blood Total CO2 26.1, Arterial Blood Oxygen Saturation 84L, Arterial Blood Base Excess 0.6, Paul Test YES-POS, Blood Gas Ventilator Setting NO, Blood Gas Inspired Oxygen 100% 03/25/21 04:28: White Blood Count 28.7H, Red Blood Count 4.71, Hemoglobin 13.6, Hematocrit 41, Mean Corpuscular Volume 88, Mean Corpuscular Hemoglobin 29, Mean Corpuscular Hemoglobin Concent 33, Red Cell Distribution Width 13.3, Platelet Count 266, Mean Platelet Volume 9.0, Immature Granulocyte % (Auto) 1, Neutrophils (%) (Auto) 89H, Lymphocytes (%) (Auto) 3L, Monocytes (%) (Auto) 7, Eosinophils (%) (Auto) 0, Basophils (%) (Auto) 0, Neutrophils # (Auto) 25.5H, Lymphocytes # (Auto) 0.9L, Monocytes # (Auto) 1.9H, Eosinophils # (Auto) 0.1, Basophils # (Auto) 0.1, Immature Granulocyte # (Auto) 0.3H, Sodium Level 138, Potassium Level 4.2, Chloride Level 102, Carbon Dioxide Level 22, Anion Gap 14, Blood Urea Nitrogen 16, Creatinine 1.07, Estimat Glomerular Filtration Rate 55, BUN/Creatinine Ratio 15, Glucose Level 101, Calcium Level 8.7, Corrected Calcium 9.3, Phosphorus Level 5.3H, Magnesium Level 1.9, Total Bilirubin 1.1H, Aspartate Amino Transf (AST/SGOT) 21, Alanine Aminotransferase (ALT/SGPT) 15, Alkaline Phosphatase 92, Total Protein 6.3L, Albumin 3.3 03/25/21 04:37: Lactic Acid Level 1.62 03/25/21 05:00: Blood Gas Puncture Site RIGHT RADIAL, Blood Gas Patient Temperature 36.1, Arterial Blood pH 7.45H, Arterial Blood Partial Pressure CO2 37, Arterial Blood Partial Pressure O2 54L, Arterial Blood HCO3 26, Arterial Blood Total CO2 26.9, Arterial Blood Oxygen Saturation 85L, Arterial Blood Base Excess 1.9, Paul Test YES-POS, Blood Gas Ventilator Setting NO, Blood Gas Inspired Oxygen 100% Microbiology 03/20/21 Urine Culture - Final, Complete NO GROWTH 03/20/21 Blood Culture - Preliminary, Resulted No growth 03/20/21 Gram Stain - Final, Complete 03/20/21 Sputum Culture - Final, Complete Usual upper respiratory hero Staphylococcus aureus Assessment/Plan Assessment/Plan Assessment/Plan Acute respiratory distress Left pneumothorax Covid pneumonia Plan: chest tube to suction CXR today - small (<1CM) PNX - severe 5 lobe airspace disease with minimal improvement Continue intensive care - lungs are fully expanded as per CXR, and pt has good chest rise, lung tissue is badly damaged secondary to COVID PNA which inhibits adequate oxygenation - may require intubation as pt continues to work hard at breathing and maintaining adequate oxygenation. CORNELIUS FISHER DO 03/25/21 1123: Subjective Subjective/Events-last exam Patient intubated and sedated due to having decreased o2 sat and increasing work of breathing. Chest tube still with air leak. Small left apical pneumothorax. Objective Exam General Appearance: Other (intubated and sedated.) HEENT: PERRL/EOMI, Normal ENT Inspection Neck: Normal Inspection, Supple Respiratory: Decreased Breath Sounds (right is more diminished than left), Other (left chest tube) Cardiovascular: No JVD, Tachycardia Gastrointestinal: soft, no organomegaly Extremity: Normal Capillary Refill, Normal Inspection, No Calf Tenderness Neurologic/Psychiatric: Other (intubated sedated) Skin: Normal Color, Warm/Dry Lymphatic: No Adenopathy (cervical or axillary) Assessment/Plan Assessment/Plan Assessment/Plan Acute respiratory distress/failure Left pneumothorax Covid pneumonia Plan: chest tube to suction CXR today - small (<1CM) PNX - severe 5 lobe airspace disease with minimal improvement Continue intensive care Intubated and sedated Supervisory-Addendum Brief Verification & Attestation Participated in pt care: history, MDM, physical Personally performed: exam, history, MDM, supervision of care Care discussed with: Medical Student Procedures: n/a Results interpretation: Verified all documentation Verification and Attestation of Medical Student E/M Service A medical student performed and documented this service in my presence. I review ed and verified all information documented by the medical student and made modifications to such information, when appropriate. I personally performed the physical exam and medical decision making. Cornelius Fisher Mar 25, 2021,11:23 ELVIS STEVENSON Mar 25, 2021 07:44 CORNELIUS FISHER DO Mar 25, 2021 11:23
[2021-03-25] MEDS ORDERED: PROPOFOL DRIP (ICU) 100 ML IV ONE (07:55)
--- NOTE | 2021-03-25 08:03 | Anesthesia-Procedure Note ---
Procedures/Interventions Procedure Start/Stop/Diagnosis Date of Procedure: Mar 25, 2021 Start Time: 07:40 Referring Physician: eicu Preprocedural Diagnosis: respiratory failure Brief History Called to ICU to intubate patient, s/p covid course who developed pneumothorax and subsequently had chest tube placed. Requiring hi bipap settings with SP02 low 80's. Pt alert and awake, and answers questions appropriately for me. Family at bedside. Intubation without event. Stop Time: 07:50 Intubation RSI: Yes 100% pre-Ox, [id number]: Yes Intubation Method: orotracheal (7.5 reddy ) Videoscope used: Yes (glidescope 3 ) Grade View: 1 Medications: Propofol (150mg), Succinylcholine (100mg) Mask Ventilation: positive Positive End Tide CO2: Yes Breath Sounds after Intubation: right greater than left ETT Securred @ (cm): 21 Intubated with ease: Yes Intubation Complications: no complications Post Intubation Xray-done: Yes (ordered ) Care turned over to: RT at bedside. DAVID MORGAN CRNA Mar 25, 2021 08:03
[2021-03-25] MEDS ORDERED: PROPOFOL DRIP (ICU) 100 ML IV SCH ×2 (08:15)
[2021-03-25] MEDS: NS IV 1000 ML 1,000 ML IV SCH (08:30)
[2021-03-25] MEDS ORDERED: NOREPINEPHRINE 8 MG/250 ML 250 ML IV SCH (08:30)
[2021-03-25] MEDS ORDERED: FUROSEMIDE 40 MG/4 ML INJ (LASIX) IVP ONE (08:30)
--- NOTE | 2021-03-25 08:36 | Diagnostic Imaging Report ---
CLINICAL INDICATIONS: Patient intubated. Evaluate tube placement. EXAM: Portable chest x-ray supine view. COMPARISON: Portable chest x-ray dated 03/25/2021 at 0525 hours. FINDINGS AND IMPRESSION: 1: There is interval placement of ET tube with tip grossly 8.3 cm from the level of the lola and at the lower T1 vertebral body level. This tube should be advanced 3 cm to ensure better position. 2: There appears to be development of minimal subcutaneous air overlying the lower lateral left extrathoracic soft tissue, which should be followed on subsequent imaging. There is no pneumothorax. 3: Interval placement of feeding tube with distal portion overlying the expected region of the proximal gastric body. 4: Stable diffuse bilateral lung infiltrates. 5.: The remainder of this exam shows no significant interval change compared to the prior study of comparison. Dictated by: Dictated on workstation # [id number]
[2021-03-25 09:00] VITALS: BP 142/76
[2021-03-25] MEDS: LOSARTAN 100 MG (COZAAR) TABLET PO SCH (09:23)
[2021-03-25] MEDS: ENOXAPARIN 40 MG/0.4 ML (LOVENOX) SYR SC SCH (09:23)
[2021-03-25] MEDS: SENNA W/DOCUSATE (SENOKOT S) TABLET PO SCH (09:24)
[2021-03-25] MEDS: guaiFENesin (MUCINEX) 600 MG TAB PO SCH (09:24)
[2021-03-25] MEDS: polyethylene glycoL POWDER 17 GM (MIRALAX) PACK PO SCH (09:24)
--- NOTE | 2021-03-25 09:45 | Diagnostic Imaging Report ---
Indication: Respiratory distress. Compared with study 03/25/2021. Findings: ET tube mid thoracic trachea, OG catheter in the stomach. There are severe 5 lobe airspace opacities present. While the disease remains substantial, it is at least slightly reduced in density when compared to prior with better delineation of the diaphragms and heart border. There is now visualized tiny left apical pneumothorax with pleural separation measuring maximally about 2 to 3 mm. Previously noted subcutaneous gas can no longer be identified. No effusion. Impression: Severe 5 lobe infiltrates with slight improvement. Previously there was noted soft tissue gas laterally in the left chest wall, this is no longer apparent however we now can identify a tiny left apical pneumothorax of likely 1% at most. Support apparatus in good position including a right PICC line at the lower SVC. Dictated by: Dictated on workstation # [id number]
[2021-03-25 10:27] LABS: ABG OXYGEN SATURATION 75 % (94-100); ABG PCO2 51 MMHG (35-45); ABG PO2 53 MMHG (79-93); ABG TCO2 22.9 MMOL/L (21.0-31.0)
[2021-03-25 10:31] LABS: ALLENS TEST YES-POS; INSPIRED O2 100%; PATIENT TEMP 97.9; VENTILATOR YES
[2021-03-25 10:34] LABS: ABG PH 7.24 (7.37-7.43)
--- NOTE | 2021-03-25 10:35 | Progress Note - Hospitalist ---
Subjective HPI/CC On Admission Date Seen by Provider: Mar 25, 2021 CC: SOB HPI: This is a 51-year-old [facility] female patient who presents with SOB the past three days, worsened since she had Covid. She was found to have a pneumothorax on the left side of 50%, a Pleuradex catheter was placed by Dr. Fisher and she will no longer need isolation but will need ICU due to requirement of max vapotherm at 40 liters and 100% and WBC of 26,000, in need of close monitoring due to high risk for decompensation. Focused Exam Lactate Level 03/25/21 04:37: Lactic Acid Level 1.62 Objective Exam Vital Signs Vital Signs Date Time Temp Pulse Resp B/P (MAP) Pulse Ox O2 Delivery O2 Flow Rate FiO2 03/25/21 10:23 100 03/25/21 10:00 131 31 136/106 74 Mechanical Ventilator 100.00 03/25/21 07:20 37.2 Capillary Refill : Less Than 3 Seconds Results/Procedures Lab Patient resulted labs reviewed. Assessment/Plan Assessment and Plan Assess & Plan/Chief Complaint Assessment: Acute hypoxic respiratory failure Left-sided pneumothorax Thora vent discontinued after arriving in the ICU placed chest tube 03/22/[address] Fisher Post Covid syndrome Anxiety Depression Hypertension Leukocytosis Plan: Vapotherm Pneumothorax management per Dr. Fisher [facility] 03/21/2021: Supportive care Max Vapotherm 03/22/2021: Chest tube placement 03/23/2021: Appreciate Dr. Natalia Resendized on Vapotherm 03/24/2021: Maintain BiPAP Chest tube management per Dr. Fisher Critical Care Critically Ill Patient Diagnosis/Problems Diagnosis/Problems (1) Pneumonia due to COVID-19 virus Status: Acute (2) Pneumothorax on left Status: Acute (3) Hypoxia Status: Acute JAMES CRAIG DO Mar 25, 2021 10:35
--- NOTE | 2021-03-25 10:54 | Tele-ICU Progress Note ---
Subjective Date Seen by a Provider: Mar 25, 2021 Time Seen by a Provider: 09:25 Subjective/Events-last exam This virtual visit was conducted using real time audio/video. Thank you for asking us to see this patient for respiratory insufficiency due to Covid pna. Also chest tube for L PTX. Recent events: Intubated earlier today PE: VSS. O2 sat 90% on 100/+16. HEENT: No obvious masses, adenopathy or JVD. Chest: clear to auscultation. Diminished. CV: RRR S1 S2 No murmur or added sounds. Abd: Non-tender. Bowel sounds Y. : Unremarkable. 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 Grossly intact. No obvious focal findings. Extremities: No edema. Capillary refill < 3 seconds. Skin: unremarkable. Results: Elevated WCC 28.7. BG: . CXR: ETT in good position. Small L PTX. Available chart/ vitals / labs / images reviewed. Video assessment done using teleICU camera, rest of exam as per RN. A/P: Respiratory insufficiency: Continue present management with Duonebs, sedatives, vent. wean O2 as otoniel although unlikely today. Dex D/Cd 03/24. Critical Care: critically ill patient. Lasix 40 mg push given for copious pink secretions following intubation. Cont.Sedatives, Frances., celexa, Losartan, HCTZ. Consider panculture, empiric abx for WCC. Discussed with PATRIZIA Durant. Asked RN to reach out to eICU if any questions or concerns later. Time spent with patient/coordination of care with other health professionals (mins):35 Sepsis Event Evaluation Height, Weight, BMI Height: '" Weight: lbs. oz. kg; 34.77 BMI Method: Focused Exam Lactate Level 03/25/21 04:37: Lactic Acid Level 1.62 Exam Exam Patient acknowledged, consented, and participated in this virtual visit which was conducted using real time audio/video Vital Signs Date Time Temp Pulse Resp B/P (MAP) Pulse Ox O2 Delivery O2 Flow Rate FiO2 03/25/21 09:00 125 142/76 03/25/21 08:59 123 132/68 03/25/21 08:42 98 106/69 03/25/21 08:34 85 103/35 03/25/21 08:30 100 30 86 100 03/25/21 07:20 37.2 03/25/21 06:35 85 34 91 100.00 03/25/21 06:30 85 03/25/21 06:00 89 33 98/24 87 NIV Bilevel 100.00 03/25/21 05:00 91 30 75/48 76 NIV Bilevel 100.00 03/25/21 04:00 88 28 75/48 91 NIV Bilevel 100.00 03/25/21 03:40 NIV Bilevel 100 03/25/21 03:00 96 39 77/33 86 NIV Bilevel 100.00 03/25/21 02:00 104 35 91/50 89 NIV Bilevel 100.00 03/25/21 01:25 101 32 83 100.00 03/25/21 01:03 124/61 03/25/21 01:00 107 03/25/21 01:00 107 31 124/61 80 NIV Bilevel 100.00 03/25/21 00:42 105 35 81 100.00 03/25/21 00:41 105 30 86 100.00 03/25/21 00:00 110 29 124/81 87 NIV Bilevel 100.00 03/24/21 23:37 NIV Bilevel 100 03/24/21 23:00 95 28 95/56 93 NIV Bilevel 100.00 03/24/21 22:25 94 26 93 100.00 03/24/21 22:00 96 29 95/68 92 NIV Bilevel 100.00 03/24/21 21:00 89 23 89/58 92 NIV Bilevel 100.00 03/24/21 20:10 NIV Bilevel 100 03/24/21 20:00 99 24 115/67 97 NIV Bilevel 100.00 03/24/21 19:57 36.6 03/24/21 19:53 92 35 101/64 95 NIV Bilevel 100.00 03/24/21 19:27 98 35 93 100.00 03/24/21 19:00 92 03/24/21 19:00 92 32 101/64 100 NIV Bilevel 100.00 03/24/21 18:53 93 32 100 100.00 03/24/21 18:00 89 31 104/66 96 NIV Bilevel 100.00 03/24/21 17:00 85 30 89/62 98 NIV Bilevel 100.00 03/24/21 16:00 NIV Bilevel 100 03/24/21 16:00 96 31 99/56 96 NIV Bilevel 100.00 03/24/21 15:49 36.3 03/24/21 15:00 92 34 101/69 100 NIV Bilevel 100.00 03/24/21 14:00 95 34 101/71 99 NIV Bilevel 100.00 03/24/21 13:00 90 32 105/67 100 NIV Bilevel 100.00 03/24/21 12:55 95 03/24/21 12:00 NIV Bilevel 100 03/24/21 12:00 35.9 03/24/21 12:00 98 36 96/65 94 NIV Bilevel 100.00 03/24/21 11:09 96 27 92 100.00 03/24/21 11:00 95 29 109/66 97 NIV Bilevel 100.00 I & O 03/25/21 07:00 Intake Total 1390 ml Output Total 1630 ml Balance -240 ml Height & Weight Height: '" Weight: lbs. oz. kg; 34.77 BMI Method: General Appearance: WD/WN, Anxious, Chronically ill, Mild Distress, Obese (See free text) HEENT: PERRL/EOMI Neck: Full Range of Motion, Non Tender, Supple Respiratory: Chest Non Tender, No Accessory Muscle Use, Decreased Breath Sounds (right is more diminished than left), Pleural Rub ([place] in left upper lobe area) Cardiovascular: No Edema, No Gallop, No Murmur, Normal Peripheral Pulses, Tachycardia Capillary Refill: Less Than 3 Seconds Peripheral Pulses: 2+ Radial Pulses (R), 2+ Radial Pulses (L) Gastrointestinal: non tender, soft, no organomegaly Extremity: Normal Capillary Refill, Normal Range of Motion, Non Tender, No Calf Tenderness, No Pedal Edema Neurologic/Psychiatric: Alert, Oriented x3, No Motor/Sensory Deficits, financial 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 Critical Care: Ventilator Management NADER VALENZUELA MD Mar 25, 2021 10:54
[2021-03-25] MEDS ORDERED: proPOfol 200 MG/20 ML (DIPRIVAN) VIAL IV ONE (10:59)
[2021-03-25] MEDS ORDERED: SUCCINYLCHOLINE INJ 100 MG/5 ML SYR/VIAL INJ ONE (10:59)
--- NOTE | 2021-03-25 14:04 | Progress Note ---
JAMISON POTTER 03/25/21 1403: Progress Note Patient was admitted to [facility] ICU on 03/20 with an admitting diagnosis of acute respiratory failure and a left pneumothorax. Patient had went to the ER for shortness of breath that had continued to worsen since she had contracted COVID earlier this year. Patient had a pleurex catheter placed by Dr. Fisher, General Surgery, and was placed on vapotherm at 40L and 100% O2 before being moved to the ICU. On 03/21 patient had a CXR that showed a stable pneumothorax. Patient remained maxed out on vapotherm. On 03/22, patient had a CXR that showed increasing pneumothorax size so patient had a chest tube placed by Dr. Fisher, General Surgery. Patient also reported having more difficulty breathing. Patient remained maxed out on Vapotherm. On 03/23, CXR showed a left-sided chest tube without large volume pneumothorax. Patient remained maxed out on Vapotherm. On 03/24, Patient was switched to BiPAP for O2 delivery. Patients chest tube suction produced 305 mL of serosenguinous fluid. Patient's chest x-ray showed no pneumothorax, but did show severe 5 lobe airspace disease. On 03/25, patient had a chest x-ray that showed a small left apical pneumothorax and severe 5 lobe airspace disease. Chest tube total suction output was 500 mL serosanguinous fluid. Patient continued to have decreasing O2 sats and increased work of respir ation and agreed to intubation. Patient was intubated and had a PICC line placement. Around 11 o'clock in the morning on 03/[address] [facility] ICU. YAMILKA CRAIG DO 03/26/21 0523: Supervisory-Addendum Brief Verification & Attestation Participated in pt care: history, MDM, physical Personally performed: exam, history, MDM, supervision of care Care discussed with: Medical Student Procedures: n/a Results interpretation: Verified all documentation Verification and Attestation of Medical Student E/M Service A medical student performed and documented this service in my presence. I reviewed and verified all information documented by the medical student and made modifications to such information, when appropriate. I personally performed the physical exam and medical decision making. Yamilka Craig Mar 26, 2021,05:23 JAMISON POTTER Mar 25, 2021 14:03 YAMILKA CRAIG DO Mar 26, 2021 05:23
--- NOTE | 2021-03-25 22:20 | Discharge Summary ---
Discharge Summary Hospital Course Was the Problem List Reviewed?: Yes Problems/Dx: (1) Pneumonia due to COVID-19 virus Status: Acute (2) Pneumothorax on left Status: Acute (3) Hypoxia Status: Acute Hospital Course Date of Admission: Mar 20, 2021 at 07:22 Admission Diagnosis : Family Physician/Provider: Dami Miller MD Date of Discharge: 03/25/21 Discharge Diagnosis: Post Covid lung disease, left-sided pneumothorax, asystole Hospital Course: Hospital Course: Pt had a lengthy 6 day hospital course after she was admitted for left sided pneumothorax and post covid syndrome. Pt overall doing about the same on max vapotherm requiring chest tube and thorovent. Levofed was initiated, pt was intubated, and vent settings were 400/28/18/100% and her ABG still showed acidosis. DNR conversation discussed with family, she went asystole and family did not want compressions and they were able to be with her when she . Labs and Pending Lab Test: Laboratory Tests 03/25/21 01:55: Blood Gas Puncture Site RIGHT RADIAL, Blood Gas Patient Temperature 36.1, Arterial Blood pH 7.42, Arterial Blood Partial Pressure CO2 39, Arterial Blood Partial Pressure O2 52L, Arterial Blood HCO3 25, Arterial Blood Total CO2 26.1, Arterial Blood Oxygen Saturation 84L, Arterial Blood Base Excess 0.6, Paul Test YES-POS, Blood Gas Ventilator Setting NO, Blood Gas Inspired Oxygen 100% 03/25/21 04:28: White Blood Count 28.7H, Red Blood Count 4.71, Hemoglobin 13.6, Hematocrit 41, Mean Corpuscular Volume 88, Mean Corpuscular Hemoglobin 29, Mean Corpuscular Hemoglobin Concent 33, Red Cell Distribution Width 13.3, Platelet Count 266, Mean Platelet Volume 9.0, Immature Granulocyte % (Auto) 1, Neutrophils (%) (Auto) 89H, Lymphocytes (%) (Auto) 3L, Monocytes (%) (Auto) 7, Eosinophils (%) (Auto) 0, Basophils (%) (Auto) 0, Neutrophils # (Auto) 25.5H, Lymphocytes # (Auto) 0.9L, Monocytes # (Auto) 1.9H, Eosinophils # (Auto) 0.1, Basophils # (Auto) 0.1, Immature Granulocyte # (Auto) 0.3H, Sodium Level 138, Potassium Level 4.2, Chloride Level 102, Carbon Dioxide Level 22, Anion Gap 14, Blood Urea Nitrogen 16, Creatinine 1.07, Estimat Glomerular Filtration Rate 55, BUN/Creatinine Ratio 15, Glucose Level 101, Calcium Level 8.7, Corrected Calcium 9.3, Phosphorus Level 5.3H, Magnesium Level 1.9, Total Bilirubin 1.1H, Aspartate Amino Transf (AST/SGOT) 21, Alanine Aminotransferase (ALT/SGPT) 15, Alkaline Phosphatase 92, Total Protein 6.3L, Albumin 3.3, Triglycerides Level 182H 03/25/21 04:37: Lactic Acid Level 1.62 03/25/21 05:00: Blood Gas Puncture Site RIGHT RADIAL, Blood Gas Patient Temperature 36.1, Arter ial Blood pH 7.45H, Arterial Blood Partial Pressure CO2 37, Arterial Blood Partial Pressure O2 54L, Arterial Blood HCO3 26, Arterial Blood Total CO2 26.9, Arterial Blood Oxygen Saturation 85L, Arterial Blood Base Excess 1.9, Paul Test YES-POS, Blood Gas Ventilator Setting NO, Blood Gas Inspired Oxygen 100% 03/25/21 08:54: Glucometer 148H 03/25/21 09:27: Blood Gas Puncture Site LT BRACHIAL, Blood Gas Patient Temperature 97.9, Arterial Blood pH 7.24*L, Arterial Blood Partial Pressure CO2 51H, Arterial Blood Partial Pressure O2 53L, Arterial Blood HCO3 21L, Arterial Blood Total CO2 22.9, Arterial Blood Oxygen Saturation 75L, Arterial Blood Base Excess -5.0L, Paul Test YES-POS, Blood Gas Ventilator Setting YES, Blood Gas Inspired Oxygen 100% Microbiology 03/20/21 Urine Culture - Final, Complete NO GROWTH 03/20/21 Blood Culture - Final, Complete No growth 03/20/21 Gram Stain - Final, Complete 03/20/21 Sputum Culture - Final, Complete Usual upper respiratory hero Staphylococcus aureus Home Meds Active Reported Benadryl Allergy (Diphenhydramine HCl) 25 Mg Tablet 25 Mg PO HS PRN Advil Liqui-Gels (Ibuprofen) 200 Mg Capsule 400-600 Mg PO Q8H PRN Tramadol HCl ER (Tramadol HCl) 100 Mg Tab.er.24h 100 Mg PO DAILY PRN Naproxen 500 Mg Tablet 500 Mg PO BID PRN Citalopram HBr (Citalopram Hydrobromide) 20 Mg Tablet 20 Mg PO HS Losartan-Hctz 100-25 mg Tab (Losartan/Hydrochlorothiazide) 1 Each Tablet 1 Ea PO DAILY HAS NOT HAD A DOSE SINCE LAST WEEK Nabumetone 750 Mg Tablet 750 Mg PO BID PRN Benzonatate 100 Mg Capsule 100 Mg PO TID PRN ALPRAZolam 0.25 Mg Tablet 0.25 Mg PO TID PRN Assessment/Pt Instructions Discharge Planning: <30 minutes discharge planning Discharge Physical Examination Vital Signs Vital Signs Date Time Temp Pulse Resp B/P (MAP) Pulse Ox O2 Delivery O2 Flow Rate FiO2 03/25/21 10:23 100 03/25/21 10:00 131 31 136/106 74 Mechanical Ventilator 100.00 03/25/21 07:20 37.2 Allergies: Uncoded Allergies: "pain meds" (Adverse Reaction, Unknown, 03/20/21) Discharge Summary Date of Admission Mar 20, 2021 at 07:22 Date of Discharge Mar 25, 2021 at 11:00 Admission Diagnosis Assessment: Acute hypoxic respiratory failure Left-sided pneumothorax Post Covid syndrome anxiety Depression Hypertension Leukocytosis Plan: Vapotherm Pneumothorax management per Dr. Fisher [facility] Discharge Diagnosis Assessment: Acute hypoxic respiratory failure Left-sided pneumothorax Thora vent discontinued after arriving in the ICU placed chest tube 03/22/[address] Fisher Post Covid syndrome Anxiety Depression Hypertension Leukocytosis Plan: Vapotherm Pneumothorax management per Dr. Fisher [facility] 03/21/2021: Supportive care Max Vapotherm 03/22/2021: Chest tube placement 03/23/2021: Appreciate Dr. Natalia FosterU Maxed on Vapotherm 03/24/2021: Maintain BiPAP Chest tube management per Dr. Fisher (1) Pneumonia due to COVID-19 virus Status: Acute (2) Pneumothorax on left Status: Acute (3) Hypoxia Status: Acute JAMES CRAIG DO Mar 25, 2021 22:20
== END 2021-03-25 11:00 | disposition expired | DRG 208 ==
LOC: ER 04:49 → ICU 07:22
PROVIDERS: ADMIT Internal Medicine; ATTEND Internal Medicine
PROC: 5A09357 Assistance with Respiratory Ventilation, Less than 24 Consecutive Hours, Continuous Positive Airway Pressure (ICD-10-PCS; 2021-03-20)
PROC: 5A1935Z Respiratory Ventilation, Less than 24 Consecutive Hours (ICD-10-PCS; principal; 2021-03-22)
PROC: 0BH17EZ Insertion of Endotracheal Airway into Trachea, Via Natural or Artificial Opening (ICD-10-PCS; 2021-03-22)
PROC: 0W9B00Z Drainage of Left Pleural Cavity with Drainage Device, Open Approach (ICD-10-PCS; 2021-03-22)
DX: J93.9 Pneumothorax, unspecified (principal); J96.21 Acute and chronic respiratory failure with hypoxia; J15.9 Unspecified bacterial pneumonia; U09.9 Post COVID-19 condition, unspecified; F32.A Depression, unspecified; I10 Essential (primary) hypertension; D72.829 Elevated white blood cell count, unspecified; I46.9 Cardiac arrest, cause unspecified; M19.90 Unspecified osteoarthritis, unspecified site; F41.9 Anxiety disorder, unspecified; E66.9 Obesity, unspecified; Z20.822 Contact with and (suspected) exposure to COVID-19; Z68.36 Body mass index [BMI] 36.0-36.9, adult
CPT/HCPCS: 36415; 36569; 36600; 71045; 71275; 76937; 80053; 81000; 82805; 82947; 83605; 83735; 84100; 84145; 84478; 85007; 85025; 85027; 85379; 85610; 85730; 86141; 87040; 87070; 87077; 87088; 87186; 87205; 87636; 94002; 94640; 94660; 94760